=== PATIENT | male | born 1975 | race Caucasian/White ===

== ENCOUNTER 2019-01-08 21:43 | Emergency (ER) | payer OTHER, MEDICAID, SELFPAY ==
--- NOTE | 2019-01-08 21:45 | DI.RAD.S_ITS ---
PROCEDURE: XR FOOT LT MIN 3V INDICATIONS: left foot injury TECHNIQUE: 3 views of the foot were acquired. COMPARISON: [facility], CR, ANKLE 3 VIEWS LEFT, 02/21/2017, 9:14. FINDINGS: Bones: There is a comminuted fracture of the distal aspect of the distal phalanx of the great toe. No intra-articular involvement can be seen. No additional fractures are detected. Incidental note is made of an accessory ossicle, an os tibiale externum. No suspicious lytic or blastic lesions are seen. Soft tissues: Associated soft tissue swelling is seen. IMPRESSION: Comminuted fracture of the distal aspect of the distal phalanx of the great toe. Dictated by: Rajinder Lira M.D. on 01/09/2019 at 7:35 Approved by: Rajinder Lira M.D. on 01/09/2019 at 7:36
--- NOTE | 2019-01-08 21:46 | ED.EXTPRO ---
HPI - Extremity Problem General Chief complaint: Extremity Injury, Lower Stated complaint: dropped 25lb dumbbell on left foot big toe Time Seen by Provider: 01/08/19 21:45 Source: patient Mode of arrival: ambulatory Limitations: no limitations History of Present Illness HPI Narrative: 43-year-old male here for evaluation of left great toe injury. Patient states just prior to arrival he dropped a 25 lb weight on his toe. Had immediate pain and bleeding afterwards. No prior injuries to toe. Wrapped with the bandage prior to arrival. Related Data Home Medications Medication Instructions Recorded Confirmed ibuprofen [Advil] 200 mg PO PRN PRN #0 09/08/17 Previous Rx's Medication Instructions Recorded cephalexin [Keflex] 500 mg PO BID 7 Days #14 cap 01/08/19 hydrocodone-acetaminophen [[place]] 1 tab PO Q4-6H PRN #14 tab 01/08/19 Allergies Allergy/AdvReac Type Severity Reaction Status Date / Time No Known Allergies Allergy Uncoded 11/11/17 12:54 Review of Systems Constitutional Denies headache(s) ENT Ears, Nose, Mouth, and Throat: Denies headache(s) Cardiovascular Denies chest pain and Denies dyspnea Respiratory Denies dyspnea Gastrointestinal Gastrointestinal: Denies abdominal pain Musculoskeletal Comments: Left big toe pain Integumentary/Breasts Comments: Bleeding around his left big toe Neurologic Denies headache(s) Comments: No tingling to the left foot Hematologic/Lymphatic Denies easy bleeding and Denies easy bruising [facility] Medical History Healthy adult (Acute) Social History Smoking Status: Current every day smoker Social History Smoking Status: Current every day smoker Exam Initial Vital Signs Initial Vital Signs: Vital Signs Temperature 97.9 F 01/08/19 21:50 Pulse Rate 75 01/08/19 21:50 Respiratory Rate 16 01/08/19 21:50 Blood Pressure 139/79 01/08/19 21:50 Pulse Oximetry 99 01/08/19 21:50 Const General: cooperative, well developed, well groomed and No acute distress Orientation: alert, awake and oriented x3 HENMT Head: normal to inspection and normocephalic Resp Effort & Inspection: normal respiratory effort Cardio Rate: regular rate Pulses: dorsalis pedis present on the left Skin Other: Cut at the base of the nail of the left great toe. Neuro Other: Sensation intact to light touch left toe. Extrem Other: Patient with injury to the distal portion of the left great toe. Psych Appearance: grossly normal Procedures Laceration Repair Laceration 1: Site: lower extremity Side (If applicable): left Size (cm): 2 Description: linear Depth: simple, single layer Local Anesthetic: lidocaine 1% Amount of anesthesia used (mL): 5 Pre-repair: irrigated extensively Skin layer closed with: other (Chromic) Size (cm): 4-0 Number of sutures: 5 Technique: simple, interrupted Orthopedic Splinting/Casting Injury #1: Side: left Lower Extremity Injury Location: foot Lower Extremity Immobilizer: post-op shoe and lidia tape Post splinting neuro exam: no change Post splinting vascular exam: no change Placed by: Nursing Course Orders Ordered: ED Orders 01/08/19 21:45 XR foot LT min 3V Stat Discontinued Medications Hydrocodone Bitart/Acetaminophen (Vicodin Prepack) 1 bottle MISC SEEINSTR ONE Stop: 01/08/19 23:38 Last Admin: 01/08/19 23:50 Dose: 1 bottle Hydrocodone Bitart/Acetaminophen ([place] 5/325) 1 tab PO NOW ONE Stop: 01/08/19 23:38 Last Admin: 01/08/19 23:50 Dose: 1 tab Cephalexin HCl (Keflex) 500 mg PO NOW ONE Stop: 01/08/19 23:38 Last Admin: 01/08/19 23:50 Dose: 500 mg Vital Signs - 8 hr 01/08/19 21:50 01/09/19 00:10 Temperature 97.9 F Pulse Rate 75 70 Respiratory Rate 16 16 Blood Pressure 139/79 123/91 H Pulse Oximetry 99 99 MDM - Extremity (Nontraumatic) Imaging Data X-ray left foot: Attestation: I personally reviewed and interpreted this imaging study as follows: My impression: Fracture of the distal phalanx left great toe MDM Narrative Medical decision making narrative: The patient is neurovascular intact. He does have a fracture of the distal phalanx of the left great toe. The left great toenail was removed after a nerve block of the toe was administered. This revealed a laceration to the nail bed which was repaired as described above. Patient was given a dose of antibiotics here in the emergency department. Was given a prescription for antibiotics take at home as well as pain medication. 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 He was given care instructions and return precautions. He expressed understanding and agreement with plan. Discharge Plan Departure Patient Disposition: Home Clinical Impression: Fracture of toe of left foot Qualifiers: Encounter type: initial encounter Toe: great toe Fracture type: open Phalanx: distal Fracture alignment: nondisplaced Qualified Code(s): S92.425B - Nondisplaced fracture of distal phalanx of left great toe, initial encounter for open fracture Discharge Date/Time: 01/09/19 00:10 Interventions: ED Discharge Assessment Last Done: 01/09/19 00:10 Instructions: DI for Toe Fracture Activity Restrictions/Additional Instructions: You can shower like normal. Do not soak your foot in anything until the cut is healed. The stitches will come out on their own. Recommend you wear the shoe and the boot like we discussed. Take the medication as directed. Recommend you contact [phone] to talk with the health human resources services specialist here at the hospital to aid in helping you establish a primary provider. Return to the emergency department for any new or worsening symptoms Prescriptions: New hydrocodone-acetaminophen [[place]] 5-325 mg tablet 1 tab PO Q4-6H PRN (Reason: pain) Qty: 14 RF: 0 cephalexin [Keflex] 500 mg capsule 500 mg PO BID 7 Days Qty: 14 RF: 0 No Action ibuprofen [Advil] 200 MG tablet 200 mg PO PRN PRNQty: 0 RF: 0 Referrals: Benoit Lubin MD [Primary Care Provider] -
[2019-01-08 21:50] VITALS: BP 139/79; PULSE 75; RESP 16; TEMP 36.6; O2SAT 99
--- NOTE | 2019-01-08 22:16 | PC.NURSE ---
Dr. Joyce at bedside
[2019-01-08] MEDS: HYDROCODONE/ACET 5/325 PREPACK 1 BOTTLE MISC (23:50)
[2019-01-08] MEDS: HYDROCODONE/ACET 5/325 TABLET 1 TAB PO (23:50)
[2019-01-08] MEDS: cephALEXin 250 MG CAPSULE 500 MG PO (23:50)
[2019-01-09 00:10] VITALS: BP 123/91; PULSE 70; RESP 16; O2SAT 99
== END 2019-01-09 00:10 | disposition home or self-care (01) ==
PROVIDERS: Emergency Provider Emergency Medicine; PCP Family Medicine
DX: S91.212A Laceration without foreign body of left great toe with damage to nail, initial encounter (principal); S92.425B Nondisplaced fracture of distal phalanx of left great toe, initial encounter for open fracture; W20.8XXA Other cause of strike by thrown, projected or falling object, initial encounter
CPT/HCPCS: 12001; 73630; 99283

== ENCOUNTER → 2019-08-25 10:34 | Outpatient (CLI) | payer OTHER, SELFPAY ==
--- NOTE | 2019-08-25 10:43 | DI.RAD.S_ITS ---
PROCEDURE: XR LUMBAR SPINE MIN 4V INDICATIONS: lower back pain TECHNIQUE: 5 total views of the lumbar spine were acquired, including bilateral oblique views. COMPARISON: [facility], CR, XR SACRUM COCCYX MIN 2V, 08/25/2019, 10:41. [facility], CT, KIDNEY/ URETER/BLADDER, 02/13/2013, 22:13. [facility], CT, CHEST ABDOMEN PELVIS WITH CONTRAST, 08/11/2010, 2:33. FINDINGS: Bones: 5 nonrib-bearing vertebrae are present. There is normal bony alignment. No vertebral body compression fractures. No suspicious bony lesions. The disc heights are well-preserved. Soft tissues: Overlying bowel gas pattern is normal. No suspicious soft tissue calcifications. Oblique images: No pars defects. IMPRESSION: Unremarkable study, without pars defects. Dictated by: Rajinder Lira M.D. on 08/25/2019 at 10:09 Approved by: Rajinder Lira M.D. on 08/25/2019 at 10:10
--- NOTE | 2019-08-25 10:43 | DI.RAD.S_ITS ---
PROCEDURE: XR SACRUM COCCYX MIN 2V INDICATIONS: lower back pain TECHNIQUE: 3 views of the sacrum and coccyx acquired. COMPARISON: [facility], CT, CHEST ABDOMEN PELVIS WITH CONTRAST, 08/11/2010, 2:33. [facility], CT, KIDNEY/ URETER/BLADDER, 02/13/2013, 22:13. [facility], CR, XR LUMBAR SPINE MIN 4V, 08/25/2019, 10:41. FINDINGS: Bones: No fractures or dislocations. No suspicious bony lesions. There is anterior angulation of the coccyx seen between the 1st and 2nd segments of the coccyx. This is unchanged compared to 2010. Soft tissues: Visualized bowel gas pattern is normal. No suspicious soft tissue densities. IMPRESSION: Unremarkable study, considered to be stable compared to 2010. Dictated by: Rajinder Lira M.D. on 08/25/2019 at 10:07 Approved by: Rajinder Lira M.D. on 08/25/2019 at 10:09
== END ==
PROVIDERS: Visit Provider Physician Assistant
DX: M54.5 Low back pain (principal)
CPT/HCPCS: 72110; 72220

== ENCOUNTER → 2021-10-23 09:13 | Outpatient (CLI) | payer OTHER, SELFPAY ==
--- NOTE | 2021-10-23 09:17 | DI.RAD.S_ITS ---
PROCEDURE: XR HAND RT MIN 3V INDICATIONS: Thumb Injury TECHNIQUE: 3 views of the hand(s) acquired. COMPARISON: None. FINDINGS: Bones: No fractures or dislocations. Carpal bones are normally aligned. No suspicious bony lesions. Soft tissues: No suspicious soft tissue calcifications. IMPRESSION: No gross acute fracture or dislocation is seen in right hand and right thumb. Dictated by: Julian Marley M.D. on 10/23/2021 at 9:54 Approved by: Julian Marley M.D. on 10/23/2021 at 9:54
== END ==
PROVIDERS: Referring Provider Nurse Practitioner Family; Visit Provider Nurse Practitioner Family
DX: S60.011A Contusion of right thumb without damage to nail, initial encounter (principal); X58.XXXA Exposure to other specified factors, initial encounter
CPT/HCPCS: 73130

== ENCOUNTER 2022-02-14 15:55 | Emergency (ER) | payer OTHER, SELFPAY ==
[2022-02-14 16:03] VITALS: BP 141/80; PULSE 90; RESP 18; TEMP 37; O2SAT 98; BMI 22.9
--- NOTE | 2022-02-14 17:54 | DI.RAD.S_ITS ---
PROCEDURE: XR LUMBAR SPINE 2-3V INDICATIONS: Low back pain TECHNIQUE: 3 views of the lumbar spine were acquired. COMPARISON: None. FINDINGS: There are 5 [id number] lumbar type vertebral bodies. No fracture or malignment. No acute finding. IMPRESSION: No acute finding. Dictated by: Rigoberto Arreola M.D. on 02/14/2022 at 18:43 Approved by: Rigoberto Arreola M.D. on 02/14/2022 at 18:44
--- NOTE | 2022-02-14 17:55 | ED.BACK ---
HPI - Back Pain/Injury General Chief Complaint: Back Pain/Injury Stated Complaint: injured back while moving a rock Time Seen by Provider: 02/14/22 17:08 Source: patient History of Present Illness HPI Narrative: 46-year-old male, daily smoker, presents to the emergency department with low back pain secondary to moving a rock at work. 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 Patient has reported weakness to bilateral lower extremities but denies any saddle anesthesia. Pain worsens with bending movements. Patient reports a history of lumbar strain, but never this bad. This is a L& I claim. Related Data Home Medications Medication Instructions Recorded Confirmed ibuprofen 200 mg tablet (Advil) 200 mg PO PRN PRN ##0 09/08/17 10/23/21 amoxicillin 250 mg capsule 250 mg PO BID 10/23/21 10/23/21 Previous Rx's Medication Instructions Recorded hydrocodone 5 mg-acetaminophen 325 1 tab PO Q6H PRN pain #10 tabs 02/14/22 mg tablet methocarbamol 750 mg tablet 750 mg PO TID PRN back spasms #20 02/14/22 tabs Allergies Allergy/AdvReac Type Severity Reaction Status Date / Time No Known Drug Allergies Allergy Verified 02/14/22 16:05 Review of Systems Review of Systems Narrative: Narrative: GENERAL: Denies chills, fatigue, fever, sweats. See HPI HEENT: Denies sinus pain, ear pain, sore throat, difficulty swallowing, dizziness. RESPIRATORY: Denies dyspnea, cough, wheezing, sputum. CARDIOVASCULAR: Denies chest pain, palpitations, edema. GASTROINTESTINAL: Denies nausea, vomiting, abdominal pain, diarrhea, constipation. : Denies dysuria, frequency, incontinence, hematuria, urinary retention, flank pain. MSK: Denies joint pain, or bony pain. SKIN: Denies rash, skin lesions, or pruritis. NEUROLOGIC: Denies dizziness, headache, numbness, confusion. PSYCHIATRIC: No concerning psychosocial issues. Patient History Medical History (Updated 02/14/22 @ 19:18 by ASHLEY Orantes) Healthy adult Social History Smoking Status: Current every day smoker Smoking Status: Current every day smoker alcohol intake frequency: a few times a month Substance Use Type: marijuana Exam Narrative Exam Narrative: Exam Narrative: GENERAL: This is a well-nourished, well-developed patient, in visible discomfort. HEAD: Atraumatic. Normocephalic. EYES: Pupils equal round and reactive. Extraocular motions intact. No scleral icterus, injection or drainage. ENT: Nose without bleeding, purulent drainage. Throat without erythema, tonsillar hypertrophy or exudate. Airway patent. NECK: Trachea midline. No JVD or lymphadenopathy. Nontender. CARDIOVASCULAR: Regular rate and rhythm without murmurs, peripheral pulses intact, cap refill <2 sec. RESPIRATORY: Breath sounds equal and clear bilaterally. No wheezes, rales, or rhonchi. No cough. No increased respiratory effort. No accessory muscle use. GASTROINTESTINAL: Abdomen soft, non-tender, nondistended without guarding or rebound. No suprapubic pain. MSK: Moves all extremities. Limited range of motion due to pain. Neurovascularly intact. NEURO: A&O x 3. SKIN: Warm, dry, no rashes or lesions noted. 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 There is no asymmetry, swelling, bruising or wound. There is paraspinal tenderness at L5 and denies any CVA tenderness. SI joints nontender. No symptoms of cauda equina such as saddle anesthesia. Sensation is grossly intact. ROM is limited due to pain. SLE is positive bilaterally. Reflexes 2-3 at patella and achilles bilaterally. Resistive strengths are within normal limits Gait is ataxic. Heel toe balance is intact. Course Orders Ordered: ED Orders 02/14/22 17:54 XR lumbar spine 2-3V Stat Discontinued Medications Ketorolac Tromethamine (Ketorolac 30 Mg/Ml Vial) 30 mg IM NOW ONE Stop: 02/14/22 18:10 Last Admin: 02/14/22 18:24 Dose: 30 mg Documented By: EM Oxycodone/Acetaminophen (Oxycodone/Acetaminophen 5/325 Tablet) 1 tab PO NOW ONE Stop: 02/14/22 18:03 Last Admin: 02/14/22 18:09 Dose: Not Given Documented By: CTS Vital Signs Vital signs: Vital Signs - 8 hr 02/14/22 16:03 Temperature 98.6 F Pulse Rate 90 Respiratory Rate 18 Blood Pressure 141/80 H Pulse Oximetry 98 Oxygen Delivery Method Room Air MDM - Back Pain/Injury Differential Diagnosis Differential diagnosis: Likely strain of lumbar region Imaging Data Extremity x-ray #1: Radiologist's Impression: [address] [address] XRay Report Signed Patient: Rigoberto Abreu MR#: [id number] : 1975 Acct:[id number] Age/Sex: 46 / M Date of Service: 02/14/22 Loc: ED Accession Number: [id number] ?? Procedure: XR lumbar spine 2-3V Ordering Provider: Anton Felix PROCEDURE:? XR LUMBAR SPINE 2-3V ? INDICATIONS:? Low back pain ? TECHNIQUE:? 3 views of the lumbar spine were acquired.? ? COMPARISON:? None. ? FINDINGS:? ? There are 5 [id number] lumbar type vertebral bodies. No fracture or malignment. No acute finding. ? IMPRESSION:? No acute finding. ? ? Dictated by: Rigoberto Arreola M.D. on 02/14/2022 at 18:43 ? ? Approved by: Rigoberto Arreola M.D. on 02/14/2022 at 18:44? [facility] Narrative Medical decision making narrative: 46-year-old male presents to the emergency department with lower back pain while lifting a rock at work earlier today. Due to previous drug use, patient declined Percocet for pain control and opted for a Toradol injection. X-ray reveals a normal lumbar spine. Consideration included that injury was traumatic, patient is not a IV drug user, no fever, neurovascular intact, no weakness, no signs of epidural abscess or saddle anesthesia. Patient was discharged home with muscle relaxers short course of opioids, due to his pain. L and I paperwork completed. Discussed plan of care and return precautions with the patient, who was agreeable with course of action. Discharge Plan Departure Patient Disposition: Home Clinical Impression: Lumbar back pain Instructions: DI for Low Back Pain, DI for Back Strain or Sprain Activity Restrictions/Additional Instructions: *You have been diagnosed with lumbar strain. I recommend that you rest her back as much as possible, but do engage in daily range of motion stretching exercises so you do not get too stiff. I am prescribing a muscle relaxer and pain medication. Please provide your L&I paperwork to your employer. If at any point you develop loss of control of your bowel or bladder, or experiencing intolerable pain, please return to the emergency department immediately. Otherwise, please follow-up with your family doctor as needed. *What to do: *Please continue to take your regular medications as directed. [x ] New medication prescriptions sent to your pharmacy: [[facility] in [place]] [ ] New medication written as a paper prescription [ ] No new medications given *Please follow up with your primary care provider in 2-3 days, call for an appointment. Let them know you were seen in the Emergency Department and that we ask that you be seen in follow up. We will electronically transmit a record of today's note if your PCP is in our system *If you do not have a primary care provider please contact the [facility] Resource line at [phone]. They will ask some questions about your medical history and help get you set up with a doctor in the community. ? Return to ER if you should have any new, worsening or concerning symptoms, such as worsening pain, severe headache, confusion, chest pain, difficulty breathing, fever greater than 101 F, shaking chills, persistent vomiting to the point that you cannot drink fluids, or other new or worsening symptoms. Prescriptions: New methocarbamol 750 mg tablet 750 mg PO TID PRN (Reason: back spasms) Qty: 20 0RF hydrocodone-acetaminophen 5-325 mg tablet 1 tab PO Q6H PRN (Reason: pain) Qty: 10 0RF No Action amoxicillin 250 mg capsule 250 mg PO BID ibuprofen [Advil] 200 MG tablet 200 mg PO PRN PRNQty: 0 Stand Alone Forms: Work Release Note Visit Report Forms: Patient Portal/API
[2022-02-14] MEDS: KETOROLAC 30 MG/ML VIAL IM (18:24)
== END 2022-02-14 19:32 | disposition home or self-care (01) ==
PROVIDERS: Emergency Provider Registered Nurse
DX: M54.50 Low back pain, unspecified (principal); X50.0XXA Overexertion from strenuous movement or load, initial encounter; Y99.0 Civilian activity done for income or pay
CPT/HCPCS: 72100; 96372; 99283; J1885

== ENCOUNTER 2022-02-18 09:43 | Emergency (ER) | payer OTHER, SELFPAY ==
[2022-02-18 09:48] VITALS: BP 129/66; PULSE 89; RESP 18; TEMP 36.7; O2SAT 96; BMI 22.3
--- NOTE | 2022-02-18 11:03 | ED_ITS ---
HPI - Back Pain/Injury General Chief Complaint: Back Pain/Injury Stated Complaint: back pain Time Seen by Provider: 02/18/22 10:31 Source: patient History of Present Illness HPI Narrative: 46-year-old man with chronic back pain come to the ER today with 2 days of severe back pain after doing heavy lift at work. He was seen in the emergency department yesterday with minimal improvement with the medications prescribed. He has radiation of tingling and numbness in the back of his thighs. He denies incontinence, fever and lower extremity weakness. Related Data Home Medications Medication Instructions Recorded Confirmed ibuprofen 200 mg tablet (Advil) 200 mg PO PRN PRN ##0 09/08/17 10/23/21 amoxicillin 250 mg capsule 250 mg PO BID 10/23/21 10/23/21 Previous Rx's Medication Instructions Recorded hydrocodone 5 mg-acetaminophen 325 1 tab PO Q6H PRN pain #10 tabs 02/14/22 mg tablet methocarbamol 750 mg tablet 750 mg PO TID PRN back spasms #20 02/14/22 tabs dexamethasone 4 mg tablet 4 mg PO DAILY #5 tabs 02/18/22 morphine 30 mg immediate release 30 mg PO Q6H #12 tabs 02/18/22 tablet Allergies Allergy/AdvReac Type Severity Reaction Status Date / Time No Known Drug Allergies Allergy Verified 02/18/22 10:11 Review of Systems Review of Systems Narrative: Complete review of systems is negative other than as noted above. Patient History Medical History (Updated 02/18/22 @ 11:03 by Ray Lin MD) Healthy adult Social History Smoking Status: Current every day smoker Smoking Status: Current every day smoker alcohol intake frequency: a few times a month Substance Use Type: marijuana Exam Narrative Exam Narrative: GENERAL: Alert, cooperative and in no distress. HEAD: Atraumatic. Normocephalic. EYES: Sclera are clear without icterus. Extraocular movements are full. ENT: No rhinorrhea. Oropharynx is moist. Mouth exam is benign. NECK: Supple. Full range of motion. CARDIOVASCULAR: Normal rate and rhythm without murmur gallop or rub. RESPIRATORY: Clear to auscultation. Breath sounds equal bilaterally. No wheezes, rales, or rhonchi. GASTROINTESTINAL: Abdomen soft, non-tender, nondistended. EXTREMITIES: No edema, full range of motion. No obvious trauma. BACK: Normal inspection, no CVA tenderness. NEURO: Nonfocal examination, normal speech, normal dorsiflexion and plantar flexion at the ankles. Straight leg testing is positive at 20? bilaterally. SKIN: No rash or erythema of visible areas PSYCH: Normally oriented. Normal range of affect. Appropriate behavior Initial Vital Signs Initial Vital Signs: Vital Signs Temperature 98.0 F 02/18/22 09:48 Pulse Rate 89 02/18/22 09:48 Respiratory Rate 18 02/18/22 09:48 Blood Pressure 129/66 02/18/22 09:48 Pulse Oximetry 96 02/18/22 09:48 Oxygen Delivery Method 02/18/22 09:48 Course Vital Signs Vital signs: Vital Signs - 8 hr 02/18/22 09:48 Temperature 98.0 F Pulse Rate 89 Respiratory Rate 18 Blood Pressure 129/66 Pulse Oximetry 96 Oxygen Delivery Method Room Air MDM - Back Pain/Injury MDM Narrative Medical decision making narrative: I do not suspect an acute nerve impingement or cauda equina syndrome or epidural abscess. I think musculoskeletal pain with radiculopathy is the diagnosis here. I recommend conservative management with close outpatient follow-up. Careful return precautions given. Discharge Plan Departure Patient Disposition: Home Clinical Impression: Lumbar back pain, Sciatica Instructions: DI for Back Pain With Sciatica Activity Restrictions/Additional Instructions: Thank you for interesting us with your care today. I am sorry that you back is hurting you so much. I wish we can just fix it make it better. Unfortunately these things take some time and fortunately you do not have signs that are emergent at this time. You should return to the emergency department immediately for incontinence or lower extremity weakness or fever associated with her back pain. For pain management I recommend the large dose of Tylenol that you have been taking twice daily. Discontinue ibuprofen. Instead take dexamethasone 4 mg daily for 5 days. This is a very potent anti inflammatory medication that should help quite a bit over the next few days. I do not recommend methoc arbamol unless you find a distinctly useful. I will prescribe morphine tablets for you to take 1 or 2 every 4 hours as needed for severe pain understanding that this medication is very sedating and can be dangerous and habit-forming. Be proactive about constipation as this almost always occurs with morphine. Follow-up with a primary care doctor at the [facility] for internal medicine or family medicine. At some point you may need to see a spine surgeon such as Dr. Munoz in [place]. The primary care #[phone]. Make sure that you tell them that this is an ER follow-up. Prescriptions: New morphine 30 mg tablet 30 mg PO Q6H Qty: 12 0RF dexamethasone 4 mg tablet 4 mg PO DAILY Qty: 5 0RF No Action amoxicillin 250 mg capsule 250 mg PO BID ibuprofen [Advil] 200 MG tablet 200 mg PO PRN PRNQty: 0 methocarbamol 750 mg tablet 750 mg PO TID PRN (Reason: back spasms) Qty: 20 0RF hydrocodone-acetaminophen 5-325 mg tablet 1 tab PO Q6H PRN (Reason: pain) Qty: 10 0RF Stand Alone Forms: Work Release Note
== END 2022-02-18 11:17 | disposition home or self-care (01) ==
PROVIDERS: Emergency Provider Family Medicine Addiction Medicine
DX: M54.40 Lumbago with sciatica, unspecified side (principal); X50.0XXA Overexertion from strenuous movement or load, initial encounter; Y99.0 Civilian activity done for income or pay
CPT/HCPCS: 99281

== ENCOUNTER 2024-02-02 08:24 | Emergency (ER) | payer OTHER, SELFPAY ==
[2024-02-02 08:35] VITALS: BP 133/89; PULSE 70; RESP 16; TEMP 36.1; O2SAT 100; BMI 20.9
--- NOTE | 2024-02-02 09:47 | PC.NURSE ---
Work injury from 3 days ago. Pt states his headache has gotten worse. Pt states he has been dizzy and some nausea. Pt was able to drive himself here. No vision changes.
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
--- NOTE | 2024-02-02 10:33 | DI.CT.S_ITS ---
PROCEDURE: CT HEAD/BRAIN WO CON INDICATIONS: head pain, trauma 5 days ago, R temporal area TECHNIQUE: Noncontrast 4.5 mm thick angled axial sections acquired from the foramen magnum to the vertex, with coronal and sagittal reformats. For radiation dose reduction, the following was used: automated exposure control, adjustment of mA and/or kV according to patient size. COMPARISON: None. FINDINGS: Image quality: Diagnostic. CSF spaces: Basal cisterns are patent. No extra-axial fluid collections. Ventricles are normal in size and shape. Brain: No midline shift. No intracranial masses or hemorrhage. Farr-white matter interface is normal. Skull and face: Calvarium and visualized facial bones are intact, without suspicious lesions. Sinuses: Visualized sinuses and mastoids are clear. IMPRESSION: No acute intracranial pathology. Dictated by: Cuauhtemoc Bustillo M.D. on 02/02/2024 at 10:47 Approved by: Cuauhtemoc Bustillo M.D. on 02/02/2024 at 10:49
[2024-02-02] MEDS: ONDANSETRON 4 MG ODT SL (10:49)
[2024-02-02 11:50] VITALS: PULSE 63; RESP 16
[2024-02-02 12:32] VITALS: BP 114/71; PULSE 72; RESP 16; O2SAT 99
== END 2024-02-02 12:33 | disposition home or self-care (01) ==
PROVIDERS: Emergency Provider Emergency Medicine
DX: S06.0X0A Concussion without loss of consciousness, initial encounter (principal); W22.8XXA Striking against or struck by other objects, initial encounter
CPT/HCPCS: 70450; 99283; 99284

== ENCOUNTER 2025-05-11 17:43 | Emergency (ER) | payer OTHER, SELFPAY ==
[2025-05-11 18:00] VITALS: BP 112/56; PULSE 57; RESP 30; TEMP 36.9; O2SAT 94
[2025-05-11 18:06] LABS: Add Manual Diff / Slide Review NO; Hematocrit 47.8 % (41-53); Hemoglobin 16.3 g/dL (13.5-17.5); Lymphocytes Absolute Auto 900 /uL (1100-4500); Mean Corpuscular HGB Conc 34.1 % (30-36); Mean Corpuscular Hemoglobin 31.1 PG (26-34); Mean Corpuscular Volume 91.3 fL (80-100); Platelet Count 289 X10^3/uL (150-400)
--- NOTE | 2025-05-11 18:07 | PC.NURSE ---
pt not responding verbally to this nurse. IV fluids were attempted to be placed and the patient became agitated and tried to cover himself up with blankets.
--- NOTE | 2025-05-11 19:05 | PC.NURSE ---
Rn to exam room. Pt's family at bedside. Pt stirs, sits up, and asks where he is. Explained to patient current situation. Pt able to state who family members at bedside are but quickly becomes agitated, lays back down and covers himself with blankets. Family refuses vital signs or other interventions at this time. Family states he will become more cooperative as he wakes up.
--- NOTE | 2025-05-11 19:56 | ED.SEIZURE ---
HPI - Seizure General Chief Complaint: Seizure Stated Complaint: Unwitnessed Seziure Time Seen by Provider: 05/11/25 17:52 Mode of arrival: EMS History of Present Illness HPI Narrative: 49-year-old male with history of prior single seizure 6 months ago, not on antiseizure medications, awaiting Neurology consultation on 06/05/25, brought in by ambulance agitated, found in the bathtub by family, attempted to get out of the bathtub, history of seizures, unclear if you had any witnessed seizure, no historians at bedside on my evaluation. Not able to follow command, not cooperative with commands. Would not answer questions regarding any areas that he has pain. Unclear if he has antiseizure medications. Await family historian for further information. Related Data Previous Rx's ?Medication ?Instructions ?Recorded levetiracetam 500 mg tablet 500 mg PO BID #60 tabs 05/11/25 (Keppra) Allergies Allergy/AdvReac Type Severity Reaction Status Date / Time No Known Drug Allergies Allergy Verified 05/11/25 18:07 Exam Narrative Exam Narrative: GENERAL: Uncooperative, we would not give history HEAD: Atraumatic. Normocephalic. EYES: Pupils equal round and reactive. Extraocular motions intact. No scleral icterus. No injection or drainage. ENT: No obvious craniofacial acute trauma. NECK: Trachea midline. Moves neck well. CARDIOVASCULAR: Regular rate and rhythm without murmurs, gallops, or rubs. RESPIRATORY: Clear to auscultation. Breath sounds equal bilaterally. No wheezes, rales, or rhonchi. Posterior thoracic abrasion small right lower. No air emphysema subcutaneous, no crepitance. GASTROINTESTINAL: Abdomen soft, non-tender, nondistended. EXTREMITIES: No edema or joint tenderness. BACK: Nontender without deformity or crepitance. No flank tenderness. NEURO: AOx3. Motor functions grossly nonfocal. SKIN: No rash or erythema of visible areas Initial Vital Signs Initial Vital Signs: Vital Signs Temperature 98.4 F 05/11/25 18:00 Pulse Rate 57 L 05/11/25 18:00 Respiratory Rate 30 H 05/11/25 18:00 Blood Pressure 112/56 L 05/11/25 18:00 Pulse Oximetry 94 05/11/25 18:00 Oxygen Delivery Method Room Air 05/11/25 18:00 Course Orders Ordered: ED Orders 05/11/25 21:25 Acetaminophen Stat CMP [Comprehensive Metabolic Panel] Stat ETOH [Ethanol (ETOH)] Stat Salicylate Stat Discontinued Medications Diazepam (Diazepam 10 Mg/2 Ml Syringe) 5 mg IV NOW ONE Stop: 05/11/25 17:53 Last Admin: 05/11/25 19:08 Dose: Not Given Documented By: DELILAH Sodium Chloride (Normal Saline 0.9%) 1,000 mls @ 1,000 mls/hr IV BOLUS ONE Stop: 05/11/25 18:51 Levetiracetam 1,000 mg/ Sodium (Chloride) 110 mls @ 440 mls/hr IV NOW ONE Stop: 05/11/25 21:54 Last Infusion: 05/11/25 22:42 Dose: Infused Documented By: Admin: 05/11/25 22:22 Dose: 440 mls/hr Documented By: LS Vital Signs Vital signs: Vital Signs - 8 hr 05/11/25 18:00 Temperature 98.4 F Pulse Rate 57 L Respiratory Rate 30 H Blood Pressure 112/56 L Pulse Oximetry 94 Oxygen Delivery Method Room Air MDM - Seizure Lab Data Attestation: I reviewed the patient's lab results. Lab results narrative: White blood cell count 95648, hemoglobin 16.3, platelets adequate. Glucose 110. BUN 21 with a creatinine 1.04. Serum CO2 and electrolytes negative. Liver functions normal. Ethanol, acetaminophen, salicylate levels negative. 05/11/25 17:50 05/11/25 21:25 Labs: Lab Results 05/11/25 05/11/25 Range/Units 17:50 21:25 WBC 21.5 H (4.5-11.0) X10^3/uL RBC 5.23 (4.5-5.9) X10^6/uL Hgb 16.3 (13.5-17.5) g/dL Hct 47.8 (41-53) % MCV 91.3 (80-100) fL MCH 31.1 (26-34) PG MCHC 34.1 (30-36) % RDW 13.2 (11.6-14.8) % Plt Count 289 (150-400) X10^3/uL Neut % (Auto) 89.2 H (50-75) % Lymph % (Auto) 4.4 L (25-40) % [place] % (Auto) 6.1 (3-14) % Eos % (Auto) 0.0 L (2-4) % Baso % (Auto) 0.3 (0-2) % Neut # (Auto) 08208 H (7689-0509) /uL Lymph # (Auto) 900 L (6238-8058) /uL [place] # (Auto) 1300 H (0-900) /uL Eos # (Auto) 0 (0-450) /uL Baso # (Auto) 100 (0-100) /uL Sodium 142 (137-145) mmol/L Potassium 3.7 (3.4-5.1) mmol/L Chloride 108 H (98-107) mmol/L Carbon Dioxide 22 (22-32) mmol/L BUN 21 H (9-20) mg/dL Creatinine 1.04 (0.66-1.25) mg/dL Estimated GFR > 60 (>60) mL/min BUN/Creatinine Ratio 20.2 (6-22) Glucose 110 H (70-99) mg/dL Calcium 10.1 (8.4-10.2) mg/dL Total Bilirubin 0.7 (0.2-1.3) mg/dL AST 38 (17-59) IU/L ALT 25 (<50) IU/L Alkaline Phosphatase 84 (38-126) U/L Total Protein 8.2 (6.3-8.2) g/dL Albumin 5.0 (3.5-5.0) g/dL Globulin 3.2 (1.7-4.1) g/dL Albumin/Globulin Ratio 1.6 (1.0-2.8) Salicylates < 1.0 (<20) mg/dL Acetaminophen < 10 (10-30) ug/mL Ethyl Alcohol < 10 (<10) mg/dL Imaging Data Chest x-ray: Radiologist's Impression: [address] [address] XRay Report Signed Patient: Rigoberto Abreu MR#: [id number] : 1975 Acct:[id number] Age/Sex: 49 / M Date of Service: 05/11/25 Loc: ED Accession Number: [id number] Procedure: XR chest 1V Ordering Provider: Albino Hung MD PROCEDURE: XR CHEST 1V INDICATIONS: rash ?bruises posterior chest TECHNIQUE: One view of the chest was acquired. COMPARISON: [facility], CR, XR CHEST 1V, 01/23/2025, 11:32. [facility], CR, CHEST 2 VIEW, 09/08/2017, 10:41. FINDINGS: Surgical changes and devices: None. Lungs and pleura: Lungs are clear. No pleural effusions or pneumothorax. Mediastinum: Mediastinal contours appear normal. Heart size is normal. Bones and chest wall: No suspicious bony lesions. Overlying soft tissues appear unremarkable. IMPRESSION: No acute cardiopulmonary abnormality is seen. Dictated by: Klever Parker M.D. on 05/11/2025 at 20:54 Approved by: Klever Parker M.D. on 05/11/2025 at 20:55 CT scan - head: Radiologist's Impression: [place] [address] CT Scan Report Signed Patient: Rigoberto Abreu MR#: [id number] : 1975 Acct:[id number] Age/Sex: 49 / M Date of Service: 05/11/25 Loc: ED Accession Number: [id number] Procedure: CT head/brain wo con Ordering Provider: Albino Hung MD PROCEDURE: CT HEAD/BRAIN WO CON INDICATIONS: ?trauma, possible sz TECHNIQUE: Noncontrast 4.5 mm thick angled axial sections acquired from the foramen magnum to the vertex, with coronal and sagittal reformats. For radiation dose reduction, the following was used: automated exposure control, adjustment of mA and/or kV according to patient size. COMPARISON: [facility], CT, CT HEAD/BRAIN WO CON, 01/23/2025, 11:44. FINDINGS: Image quality: Diagnostic. CSF spaces: Basal cisterns are patent. No extra-axial fluid collections. Ventricles are normal in size and shape. Brain: No midline shift. No intracranial mass effect or hemorrhage. Farr-white matter interface is normal. Skull and face: Calvarium and visualized facial bones are intact, without suspicious lesions. Sinuses: Visualized sinuses and mastoids are clear. IMPRESSION: No acute intracranial pathology. Dictated by: Klever Parker M.D. on 05/11/2025 at 20:55 Approved by: Klever Parker M.D. on 05/11/2025 at 20:55 MDM Narrative Medical decision making narrative: 49-year-old male with history of one prior seizure, no anti seizure medications, had reported witnessed shaking episode in front of girlfriend who was not here to give 1st hand history, not available by phone. He had abrasions to his posterior back, found in the bathroom tub. Patient was agitated, EMS gave IM Versed both for agitation and to help control seizures, no witnessed seizure by EMS. IV Keppra load. CT head ordered. Chest x-ray no acute changes, see radiology report. Lab data: White blood cell count 43184, hemoglobin 16.3, platelets adequate. Glucose 110. BUN 21 with a creatinine 1.04. Serum CO2 and electrolytes negative. Liver functions normal. Ethanol, acetaminophen, salicylate levels negative. CT head noncontrast, no acute changes, see radiology report. Slept overnight, history from brother who was at bedside. 0530, more cooperative, was ambulatory, brother feels comfortable taking him home. Second seizure, negative head CT scan, awaiting neurology consultation next month. We will start Keppra 500 mg twice daily, given 1 month supply, given that this is his 2nd reported seizure. Follow up with Neurology advised. Discharged home with family. Return precautions discussed. Discharge Plan Departure Patient Disposition: Home Clinical Impression: Seizure Activity Restrictions/Additional Instructions: History of prior seizure months ago, awaiting neurology follow up appointment scheduled next month, suspected seizure activity tonight witnessed by girlfriend who was not present to personally really history. Agitation, transport by EMS, intramuscular Versed/midazolam given to help with transfer agitation control of symptoms, which can also help with treatment of seizures. CT head no acute changes. Possibly 2nd seizure by history, we will start antiseizure medication, IV Keppra loading dose given. Prescription for Keppra 500 mg by mouth twice daily typical starting regimen dose prescription, sent to pharmacy. Take antiseizure medications as directed. Follow up with your neurologist as planned for consultation. Return to this/nearest emergency department for any change worsening symptoms or any concerns prior. Prescriptions: New levetiracetam [Keppra] 500 mg tablet 500 mg PO BID Qty: 60 0RF Referrals: Luann Vaz MD [Primary Care Provider, Emergency Medicine] Stand Alone Forms: Patient Portal/API
--- NOTE | 2025-05-11 20:00 | DI.RAD.S_ITS ---
PROCEDURE: XR CHEST 1V INDICATIONS: rash ?bruises posterior chest TECHNIQUE: One view of the chest was acquired. COMPARISON: [facility], [place], XR CHEST 1V, 01/23/2025, 11:32. [facility], [place], CHEST 2 VIEW, 09/08/2017, 10:41. FINDINGS: Surgical changes and devices: None. Lungs and pleura: Lungs are clear. No pleural effusions or pneumothorax. Mediastinum: Mediastinal contours appear normal. Heart size is normal. Bones and chest wall: No suspicious bony lesions. Overlying soft tissues appear unremarkable. IMPRESSION: No acute cardiopulmonary abnormality is seen. Dictated by: Klever Parker M.D. on 05/11/2025 at 20:54 Approved by: Klever Parker M.D. on 05/11/2025 at 20:55
--- NOTE | 2025-05-11 20:00 | PC.NURSE ---
Family remains at bedside. Pt continues to be restless lying in ED stretcher, will occasionally respond to questioning and continues to be confused at current situation. Does not comply with vs at this time and wraps himself in blankets.
--- NOTE | 2025-05-11 20:02 | DI.CT.S_ITS ---
PROCEDURE: CT HEAD/BRAIN WO CON INDICATIONS: ?trauma, possible sz TECHNIQUE: Noncontrast 4.5 mm thick angled axial sections acquired from the foramen magnum to the vertex, with coronal and sagittal reformats. For radiation dose reduction, the following was used: automated exposure control, adjustment of mA and/or kV according to patient size. COMPARISON: [facility], CT, CT HEAD/BRAIN WO CON, 01/23/2025, 11:44. FINDINGS: Image quality: Diagnostic. CSF spaces: Basal cisterns are patent. No extra-axial fluid collections. Ventricles are normal in size and shape. Brain: No midline shift. No intracranial mass effect or hemorrhage. Farr- white matter interface is normal. Skull and face: Calvarium and visualized facial bones are intact, without suspicious lesions. Sinuses: Visualized sinuses and mastoids are clear. IMPRESSION: No acute intracranial pathology. Dictated by: Klever Parker M.D. on 05/11/2025 at 20:55 Approved by: Klever Parker M.D. on 05/11/2025 at 20:55
--- NOTE | 2025-05-11 20:12 | PC.NURSE ---
Addendum entered by Cahty Hernandez RN 05/12/25 00:48: Brothers to imaging with patient Original Note: Pt to imaging via ED stretcher with chemical waste management technician
--- NOTE | 2025-05-11 21:00 | PC.NURSE ---
No change in patient condition or status at this time. Pt remains restless, wrapping self in multiple blankets and complaining of being cold and requesting water. Pt not compliant with vs at this time. No distress noted at this time. Family remains at bedside.
--- NOTE | 2025-05-11 21:30 | PC.NURSE ---
Pt compliant with lab draw from existing IV at this time but remains restless and has to be reminded frequently to keep hand still. Provided ice water at this time per pt request. Pt remains not compliant with vs at this time. Family remains at bedside.
--- NOTE | 2025-05-11 22:00 | PC.NURSE ---
RN in to exam room to administered medication. No change in patient condition or status. Family states that patient vomited up some of the water and agreed not to provide any more at this time. Pt remains confused on current situation and becomes agitated when being spoken to. Pt allows IV med administration but has to be reminded frequently during to keep arm still. Pt continues to wrap in blankets. Family remains at bedside.
--- NOTE | 2025-05-11 22:07 | CM.MNRNOTE ---
Per family pt out of bed and requesting water. Family states they were able to get him back into bed without incident. Pt wrapped in blankets upon RN to exam room not speaking at this time.
[2025-05-11 22:09] LABS: Acetaminophen < 10 ug/mL (10-30); Alanine Aminotransferase 25 IU/L (<50); Albumin 5.0 g/dL (3.5-5.0); Albumin Globulin Ratio 1.6 (1.0-2.8); Alkaline Phosphatase 84 U/L (38-126); Blood Urea Nitrogen 21 mg/dL (9-20); Calcium 10.1 mg/dL (8.4-10.2); Carbon Dioxide 22 mmol/L (22-32); Chloride 108 mmol/L (98-107); Estimated Glomerular Filt Rate > 60 mL/min (>60); Ethanol (ETOH) < 10 mg/dL (<10); Globulin 3.2 g/dL (1.7-4.1); Glucose 110 mg/dL (70-99); HEMOLYSIS < 15 (0-50); Potassium 3.7 mmol/L (3.4-5.1); Salicylate < 1.0 mg/dL (<20); Sodium 142 mmol/L (137-145); Total Protein 8.2 g/dL (6.3-8.2)
--- NOTE | 2025-05-11 22:30 | PC.NURSE ---
No change in patient condition or status. Pt continues to refuse vs. No distress noted at this time. Family remains at bedside.
--- NOTE | 2025-05-11 23:00 | PC.NURSE ---
No change in patient condition or status. Pt remains restless in stretcher and continues to wrap self in blankets including over his head. Continues to refuse vs. No distress noted at this time. Family remains at bedside.
--- NOTE | 2025-05-11 23:45 | PC.NURSE ---
Per family pt out of bed requesting water. Pt placed back in stretcher by brother without incident. Pt wrapped in blankets upon RN to exam room. Pt requests water at this time. No distress noted. Pt wrapped back in blankets when RN returns to exam room with water. Water given to brother.
--- NOTE | 2025-05-12 | PC.NURSE ---
No change in patient condition or status. Pt resting quietly with eyes closed, resps even and not labored. No distress noted at this time. Brother remains at bedside. Brother agrees that pt is still too confused and not steady enough for a safe discharge home at this time.
--- NOTE | 2025-05-12 01:00 | PC.NURSE ---
No change in patient condition or status. Pt continues to rest quietly with eyes closed, resps even and not labored. No distress noted at this time. Brother remains at bedside.
--- NOTE | 2025-05-12 01:07 | PC.NURSE ---
Discharge printed by Dr. Hung. Brother and RN agree that it is not a safe discharge at this time with pt continuing to be confused and unsteady on his feet. Pt seems to be less restless at this time and is resting quietly with eyes closed. Will reevaluate for safe discharge at a later time. Dr. Hung aware and in agreement.
--- NOTE | 2025-05-12 01:44 | PC.NURSE ---
Brother out to nurses station asking for warm blankets and more water. RN to exam room with water and blankets. Pt answering some questions. When asked if he was ready to go home pt states I don't know. I don't even know how I got here. Reoriented pt to current situation. Pt wraps self back in blankets and stops speaking. Brother states not yet ready for discharge.
--- NOTE | 2025-05-12 03:45 | PC.NURSE ---
No change in patient condition or status. Pt resting quietly with eyes closed, resps even and not labored. No distress noted at this time. Brother remains at bedside.
--- NOTE | 2025-05-12 04:24 | PC.NURSE ---
Brother to nurses station asking for water for patient. RN in to speak with patient. Asked pt Karishma Riverason, are you waking up? Pt responds Some. RN asks Do you think you're ready to get out of here and go home? Pt responds No! When asked why he states I'm still confused! and continues with I'm really thirsty and I need a lot of water. Like 3 of these cups full. RN speaking with brother outside of room that we will work on getting him up and moving soon since it has been almost 12 hours and he is responding appropriately to questions. Brother agrees.
--- NOTE | 2025-05-12 06:00 | PC.NURSE ---
Pt rouses easily to verbal stimuli states I'm not ready to go, I don't feel right. Brother and RN encourage pt to wake up and sit up to start moving around. Pt does as requested and asks for more water. RN retrieves water and removes seizure pads from bed railings. Pt has to be encouraged to stay in stretcher until socks are placed. Pt states he has to use the bathroom and quickly gets out of bed, then states he feels dizzy. RN to pt side but pt refuses to sit stating I need to go to the bathroom! where is the bathroom? RN assists pt to restroom. Pt states upon leaving bathroom that he feels dizzy and sits in chair outside of bathroom. More water is retrieved at pts request. Pt and brother are having appropriate conversation at this time.
[2025-05-12 06:19] VITALS: BP 108/69; PULSE 74; RESP 20; O2SAT 97
== END 2025-05-12 06:22 | disposition home or self-care (01) ==
PROVIDERS: Emergency Medicine; Emergency Provider Emergency Medicine; PCP Emergency Medicine
DX: G40.909 Epilepsy, unspecified, not intractable, without status epilepticus (principal)
CPT/HCPCS: 36415; 70450; 71045; 80053; 80320; 80329; 85025; 96365; 99284; G0480; J1953; J3360; J7030; J7050

== ENCOUNTER 2025-06-12 11:36 | Observation (INO) | payer OTHER, SELFPAY ==
[2025-06-12] VITALS (17 sets, daily range): BP systolic 97–123; BP diastolic 55–74; PULSE 44–88; RESP 16–23; TEMP 36.8–36.9; O2SAT 91–99
--- NOTE | 2025-06-12 11:58 | DI.CT.S_ITS ---
PROCEDURE: CT HEAD/BRAIN WO CON INDICATIONS: Seizure twice TECHNIQUE: Noncontrast 4.5 mm thick angled axial sections acquired from the foramen magnum to the vertex, with coronal and sagittal reformats. For radiation dose reduction, the following was used: automated exposure control, adjustment of mA and/or kV according to patient size. COMPARISON: [facility], CT, CT HEAD/BRAIN WO CON, 05/11/2025, 20:20. FINDINGS: Image quality: Diagnostic. CSF spaces: Basal cisterns are patent. No extra-axial fluid collections. Ventricles are normal in size and shape. Brain: No midline shift. No intracranial mass effect or hemorrhage. Farr- white matter interface is normal. Skull and face: Calvarium and visualized facial bones are intact, without suspicious lesions. Sinuses: Visualized sinuses and mastoids are clear. IMPRESSION: No acute intracranial pathology. Dictated by: Oscar Molina M.D. on 06/12/2025 at 13:23 Approved by: Oscar Molina M.D. on 06/12/2025 at 13:24
--- NOTE | 2025-06-12 12:00 | DI.RAD.S_ITS ---
PROCEDURE: XR CHEST 1V INDICATIONS: Seizure TECHNIQUE: One view of the chest was acquired. COMPARISON: [facility], CR, XR CHEST 1V, 05/11/2025, 20:02. FINDINGS: Surgical changes and devices: None. Lungs and pleura: Lungs are clear. No pleural effusions or pneumothorax. Mediastinum: Mediastinal contours appear normal. Heart size is normal. Bones and chest wall: No suspicious bony lesions. Overlying soft tissues appear unremarkable. IMPRESSION: No acute cardiopulmonary abnormality is seen. Dictated by: Casa Toscano M.D. on 06/12/2025 at 13:13 Approved by: Casa Toscano M.D. on 06/12/2025 at 13:13
--- NOTE | 2025-06-12 12:08 | ED.SEIZURE ---
HPI - Seizure General Chief Complaint: Seizure Stated Complaint: seizure Time Seen by Provider: 06/12/25 11:57 Source: EMS Mode of arrival: EMS Limitations: altered mental status History of Present Illness HPI Narrative: 49 years old male with history of seizure disorder on lacosamide, Keppra brought in by ambulance today after 2 episodes of seizure. He is postictal and could not give much information. He was spontaneously breathing without acute distress and only as suggested no at this time. I got information that the patient was having 2 episode of seizure after stopped taking Keppra since his thought he just had to continue his new medication lacosamide only. He was vomiting in the ED. Later got information from the friends that he was having 2 seizure with full body ceasing last about for 5 minutes with postictal confusion. He was supposed to take Keppra along with his new medication zonisamide with the patient stopped Keppra on Thursday instead of Thursday night. Related Data Home Medications ?Medication ?Instructions ?Recorded ?Confirmed ibuprofen 200 mg tablet (Advil) 600 mg PO BID ##0 09/08/17 06/12/25 acetaminophen 500 mg tablet 1,000 mg PO BID 06/12/25 06/12/25 (Tylenol Extra Strength) Previous Rx's ?Medication ?Instructions ?Recorded lacosamide 50 mg tablet (Vimpat) 50 mg PO BID #90 tabs 06/13/25 zonisamide 100 mg capsule 200 mg (2 x 100 mg) PO DAILY #60 06/13/25 caps Allergies Allergy/AdvReac Type Severity Reaction Status Date / Time No Known Drug Allergies Allergy Verified 06/12/25 11:45 Review of Systems Review of Systems Narrative: Positive for seizure, nausea vomiting. Negative for chest pain, abdominal pain, shortness of breath. Patient History Medical History Healthy adult Social History household members: friend(s) Smoking Status: Current every day smoker alcohol intake: current tobacco type: cigarettes alcohol intake frequency: holidays/special occasions only Exam Narrative Exam Narrative: GENERAL: Mild distress due to vomiting. HEAD: Atraumatic. Normocephalic. EYES: Pupils equal round and reactive. Extraocular motions intact. No scleral icterus. No injection or drainage. NECK: Trachea midline. Non tender CARDIOVASCULAR: Regular rate and rhythm without murmurs, gallops, or rubs. RESPIRATORY: Clear to auscultation. Breath sounds equal bilaterally. No wheezes, rales, or rhonchi. GASTROINTESTINAL: Abdomen soft, non-tender, nondistended. EXTREMITIES: No edema or joint tenderness. BACK: Nontender without deformity or crepitance. No flank tenderness. NEURO: Awake. Moving all extremities. SKIN: No rash or erythema of visible areas Initial Vital Signs Initial Vital Signs: Vital Signs Temperature 98.3 F 06/12/25 11:45 Pulse Rate 59 L 06/12/25 11:45 Respiratory Rate 16 06/12/25 11:45 Blood Pressure 121/74 06/12/25 11:45 Pulse Oximetry 97 06/12/25 11:45 Oxygen Delivery Method Room Air 06/12/25 11:45 Course Orders Ordered: Discontinued Medications Acetaminophen (Acetaminophen 325 Mg Tablet) 650 mg PO Q6H PRN PRN Reason: Fever/Mild Pain (1-3) Last Admin: 06/13/25 02:30 Dose: 650 mg Documented By: ROC Droperidol (Droperidol 2.5 Mg/Ml Vial) 1.25 mg IV NOW ONE Stop: 06/12/25 12:11 Last Admin: 06/12/25 16:26 Dose: Not Given Documented By: ANIKET Levetiracetam 2,000 mg/ Sodium (Chloride) 120 mls @ 480 mls/hr IV NOW ONE Stop: 06/12/25 11:59 Last Infusion: 06/12/25 12:51 Dose: Infused Documented By: Admin: 06/12/25 12:21 Dose: 480 mls/hr Documented By: ANIKET Ketorolac Tromethamine (Ketorolac 30 Mg/Ml Vial) 15 mg IV NOW ONE Stop: 06/13/25 02:31 Last Admin: 06/13/25 06:45 Dose: Not Given Documented By: ROC Naloxone HCl (Naloxone 0.4 Mg/Ml Vial) 0.2 mg IV Q2MIN PRN PRN Reason: Opiate Reversal Ondansetron HCl (Ondansetron 4 Mg/2 Ml Inj) 4 mg IV NOW ONE Stop: 06/12/25 12:12 Last Admin: 06/12/25 12:34 Dose: 4 mg Documented By: ANIKET Ondansetron HCl (Ondansetron 4 Mg/2 Ml Inj) 4 mg IV Q8HR PRN PRN Reason: Nausea And Vomiting Oxycodone HCl (Oxycodone Ir 5 Mg Tablet) 5 mg PO Q3H PRN PRN Reason: Pain, Moderate (4-6) Zonisamide (Zonisamide 100 Mg Capsule) 200 mg PO BEDTIME LUCIUS Zonisamide (Zonisamide 100 Mg Capsule) 200 mg PO NOW ONE Stop: 06/13/25 08:29 Last Admin: 06/13/25 08:40 Dose: 200 mg Documented By: BRYAN Vital Signs Vital signs: Vital Signs - 8 hr 06/12/25 11:45 Temperature 98.3 F Pulse Rate 59 L Respiratory Rate 16 Blood Pressure 121/74 Pulse Oximetry 97 Oxygen Delivery Method Room Air MDM - Seizure Lab Data 06/13/25 05:30 06/13/25 05:30 Labs: Lab Results 06/12/25 06/12/25 Range/Units 11:44 14:28 WBC 13.4 H (4.5-11.0) X10^3/uL RBC 5.12 (4.5-5.9) X10^6/uL Hgb 15.9 (13.5-17.5) g/dL Hct 47.3 (41-53) % MCV 92.3 (80-100) fL MCH 30.9 (26-34) PG MCHC 33.5 (30-36) % RDW 13.0 (11.6-14.8) % Plt Count 271 (150-400) X10^3/uL Neut % (Auto) 82.4 H (50-75) % Lymph % (Auto) 11.8 L (25-40) % [place] % (Auto) 4.9 (3-14) % Eos % (Auto) 0.5 L (2-4) % Baso % (Auto) 0.4 (0-2) % Neut # (Auto) 95292 H (1227-6717) /uL Lymph # (Auto) 1600 (1998-4575) /uL [place] # (Auto) 700 (0-900) /uL Eos # (Auto) 100 (0-450) /uL Baso # (Auto) 0 (0-100) /uL Sodium 143 (137-145) mmol/L Potassium 3.5 (3.4-5.1) mmol/L Chloride 107 (98-107) mmol/L Carbon Dioxide 12 L (22-32) mmol/L BUN 13 (9-20) mg/dL Creatinine 1.02 (0.66-1.25) mg/dL Estimated GFR > 60 (>60) mL/min BUN/Creatinine Ratio 12.7 (6-22) Glucose 128 H (70-99) mg/dL Lactate 11.4 H* 0.8 (0.7-2.1) mmol/L Calcium 9.4 (8.4-10.2) mg/dL Total Bilirubin 0.4 (0.2-1.3) mg/dL AST 30 (17-59) IU/L ALT 25 (<50) IU/L Alkaline Phosphatase 79 (38-126) U/L Total Protein 8.1 (6.3-8.2) g/dL Albumin 4.9 (3.5-5.0) g/dL Globulin 3.2 (1.7-4.1) g/dL Albumin/Globulin Ratio 1.5 (1.0-2.8) Imaging Data CT scan - head: Radiologist's Impression: PROCEDURE: CT HEAD/BRAIN WO CON INDICATIONS: Seizure twice TECHNIQUE: Noncontrast 4.5 mm thick angled axial sections acquired from the foramen magnum to the vertex, with coronal and sagittal reformats. For radiation dose reduction, the following was used: automated exposure control, adjustment of mA and/or kV according to patient size. COMPARISON: [facility], CT, CT HEAD/BRAIN WO CON, 05/11/2025, 20:20. FINDINGS: Image quality: Diagnostic. CSF spaces: Basal cisterns are patent. No extra-axial fluid collections. Ventricles are normal in size and shape. Brain: No midline shift. No intracranial mass effect or hemorrhage. Farr-white matter interface is normal. Skull and face: Calvarium and visualized facial bones are intact, without suspicious lesions. Sinuses: Visualized sinuses and mastoids are clear. IMPRESSION: No acute intracranial pathology. Dictated by: Oscar Molina M.D. on 06/12/2025 at 13:23 Approved by: Oscar Molina M.D. on 06/12/2025 at 13:24 Chest x-ray: Radiologist's Impression: PROCEDURE: XR CHEST 1V INDICATIONS: Seizure TECHNIQUE: One view of the chest was acquired. COMPARISON: [facility], CR, XR CHEST 1V, 05/11/2025, 20:02. FINDINGS: Surgical changes and devices: None. Lungs and pleura: Lungs are clear. No pleural effusions or pneumothorax. Mediastinum: Mediastinal contours appear normal. Heart size is normal. Bones and chest wall: No suspicious bony lesions. Overlying soft tissues appear unremarkable. IMPRESSION: No acute cardiopulmonary abnormality is seen. Dictated by: Casa Toscano M.D. on 06/12/2025 at 13:13 Approved by: Casa Toscano M.D. on 06/12/2025 at 13:13 [facility] Narrative Medical decision making narrative: 49 years old male with history of seizure disorder on lacosamide, Keppra brought in by ambulance today after 2 episodes of seizure. He is postictal and could not give much information. He was spontaneously breathing without acute distress and only as suggested no at this time. I got information that the patient was having 2 episode of seizure after stopped taking Keppra since his thought he just had to continue his new medication lacosamide only. He was vomiting in the ED. Later got information from the friends that he was having 2 seizure with full body ceasing last about for 5 minutes with postictal confusion. He was supposed to take Keppra along with his new medication zonisamide with the patient stopped Keppra on Thursday instead of Thursday night. On exam showed no focal neurological deficit. Moves on both arms and legs. Follow commands, answering questions appropriately. His CV exam, lung exam, lung exam were normal. His CT brain showed no acute finding. CBC showed WBC 13.4 otherwise normal CBC. His CMP was normal. His lactate ST-T 11.4. He was given loading dose of Keppra 2 g in the ED. I discussed the case with his neurologist Dr. Grigsby suggest to have the patient continue zonisamide 200 mg nightly from tonight and from tomorrow morning start him on Vimpat 50 mg b.i.d. for 3 days then 100 mg b.i.d. for 3 days then 150 mg b.i.d. after that. He will be admitted for observation in the hospital. I discussed the case with our hospitalist and the patient was accepted to the hospital. Discharge Plan Departure Patient Disposition: Admitted as Observation Clinical Impression: Breakthrough seizure Admit Date/Time: 06/12/25 17:53 Admit Provider: Samy Madison
[2025-06-12 12:23] LABS: Add Manual Diff / Slide Review NO; Hematocrit 47.3 % (41-53); Hemoglobin 15.9 g/dL (13.5-17.5); Lymphocytes Absolute Auto 1600 /uL (1100-4500); Mean Corpuscular HGB Conc 33.5 % (30-36); Mean Corpuscular Hemoglobin 30.9 PG (26-34); Mean Corpuscular Volume 92.3 fL (80-100); Platelet Count 271 X10^3/uL (150-400)
[2025-06-12 12:28] LABS: Alanine Aminotransferase 25 IU/L (<50); Albumin 4.9 g/dL (3.5-5.0); Albumin Globulin Ratio 1.5 (1.0-2.8); Alkaline Phosphatase 79 U/L (38-126); Blood Urea Nitrogen 13 mg/dL (9-20); Calcium 9.4 mg/dL (8.4-10.2); Carbon Dioxide 12 mmol/L (22-32); Chloride 107 mmol/L (98-107); Estimated Glomerular Filt Rate > 60 mL/min (>60); Globulin 3.2 g/dL (1.7-4.1); Glucose 128 mg/dL (70-99); HEMOLYSIS < 15 (0-50); Potassium 3.5 mmol/L (3.4-5.1); Sodium 143 mmol/L (137-145); Total Protein 8.1 g/dL (6.3-8.2)
[2025-06-12 12:29] LABS: Lactate (Lactic Acid) 11.4 mmol/L (0.7-2.1)
[2025-06-12] MEDS: ONDANSETRON 4 MG/2 ML INJ IV (12:34)
[2025-06-12 13:56] LABS: Reflexed Lactate in 2 Hours Y
[2025-06-12 14:57] LABS: Lactate 2HR (Lactic Acid Rflx) 0.8 mmol/L (0.7-2.1)
--- NOTE | 2025-06-12 17:37 | CM.DANOTE ---
DCP Assessment Note: Pt is a 49yo male, resident of [place], is admitted for breakthrough seizures. Pt's Primary Care Provider is not established and insurance is [employer] . Reviewed chart and discussed with multidisciplinary team pt's medical status and initial discharge needs. Per ED Provider, pt to be admitted to Acute Care for continued observation and seizure medication management. DCP met w/patient at bedside; introduced self and role. Present in the room is pt's Aunt, Nubia. ph#[phone]. Patient was found in bed, alert and oriented, cooperative with assessment. Pt presents as guarded, consented for Aunt to speak on his behalf for most of assessment. Pt expressed preference in discharge home when cleared, family or friend will transport at discharge. Pt has a no hx of Acute Rehab in the past. Pt states seizures are new and just getting established with medications. Plan: Anticipating discharge home with family when medically cleared. CM team will follow closely for coordination of discharge plans. MARCY Wheat Discharge Planning/Care Management CM Discharge Assessment Start: 06/12/25 17:34 Freq: Status: Active Protocol: Document 06/12/25 17:34 MW (Rec: 06/12/25 17:37 MW [id number]) Discharge Planning Assessment Assigned Discharge LISA Isidro Policy Change Clerks Supervisor Provider None established Insurance [employer] DPOA/Assigned Aunt Delacruz Designee Name Contact Information [phone] Advance Directives? No History Provided By Patient,Family Member,Medical Record Has Patient been No admitted in last 30 days? Prior Living House Arrangements Comment [place] Type of Drives own vehicle transporation used prior to admit Independent with ADL Yes 's Is patient alert and Yes oriented? Discharge Plan Home Transportation Family or Friend Arrangement Review Status In Process Please Provide Date 06/12/25 Initial DC Assessment Was Performed Next Review Type Continued Stay Review
--- NOTE | 2025-06-12 18:08 | PM.HP.1 ---
History of Present Illness History of Present Illness Date Patient Seen: 06/12/25 Time Patient Seen: 18:08 Chief complaint: seizure Narrative: Patient is a 49-year-old male with a history of seizure disorder on chronic lacosamide, and Keppra. He was brought to ER after 2 episodes of seizure and was postictal. The patient had recently stopped his Keppra and was started on lacosamide. The patient was neurologist at [facility] was able to clarify recommendations for the plan. In fact, patient was supposed to overlap the Keppra and new lacosamide but stopped the Keppra prematurely. He Keppra IV load in the emergency department and instructions from his neurologist were to continue lacosamide at 200 mg HS and start Vimpat at 50 mg twice a day for 3 days, increase to 100 mg twice a day for 3 days and then increase to 150 twice a day for the indefinite future with close Urology follow up. Unfortunately, Vimpat is not on formulary here so this will have to start outpatient tomorrow. S: After transferring to the palacio, and when I spoke to him. He was not interested in any further seizure medications and seemed to understand that he would be having more seizures and that his clinical outcome would be unclear. He does still seem mentally somewhat fuzzy and I did reassure him that we will continue to talk about options but want to observe him overnight. [facility] Medical History Healthy adult Meds Home Medications and Allergies Home Medications ?Medication ?Instructions ?Recorded ?Confirmed ?Type ibuprofen 200 mg tablet (Advil) 200 mg PO PRN PRN ##0 09/08/17 10/16/23 History levetiracetam 500 mg tablet 500 mg PO BID #60 tabs 05/11/25 Rx (Keppra) acetaminophen 500 mg tablet 1,000 mg PO BID 06/12/25 06/12/25 History (Tylenol Extra Strength) zonisamide 100 mg capsule 100 mg PO BEDTIME 06/12/25 06/12/25 History Allergies Allergy/AdvReac Type Severity Reaction Status Date / Time No Known Drug Allergies Allergy Verified 06/12/25 11:45 Review of Systems Review of Systems Narrative: All else reviewed and otherwise unremarkable except as noted in the history and physical. Exam Vital Signs (past 8 hours): - 06/12/25 11:45 06/12/25 12:31 06/12/25 12:59 Temperature 98.3 F Pulse Rate 59 L 85 Respiratory Rate 16 23 Blood Pressure 121/74 107/57 L Pulse Oximetry 97 98 Oxygen Delivery Method Room Air 06/12/25 12:59 06/12/25 13:00 06/12/25 13:30 Temperature Pulse Rate 45 L 44 L 58 L Respiratory Rate 20 16 18 Blood Pressure Pulse Oximetry 91 97 Oxygen Delivery Method 06/12/25 14:00 06/12/25 14:12 06/12/25 14:12 Temperature Pulse Rate 56 L 55 L Respiratory Rate 16 Blood Pressure 97/59 L Pulse Oximetry 98 98 Oxygen Delivery Method 06/12/25 14:30 06/12/25 14:30 06/12/25 15:00 Temperature Pulse Rate 54 L Respiratory Rate 20 Blood Pressure 97/61 100/63 Pulse Oximetry 98 Oxygen Delivery Method 06/12/25 15:00 06/12/25 15:30 06/12/25 15:30 Temperature Pulse Rate 67 62 Respiratory Rate 16 19 Blood Pressure 103/55 L Pulse Oximetry 97 95 Oxygen Delivery Method 06/12/25 16:00 Temperature Pulse Rate 88 Respiratory Rate Blood Pressure Pulse Oximetry 99 Oxygen Delivery Method Room Air Oxygen Delivery Method Room Air Narrative Exam Narrative: NAD, alert and oriented, fluent speech, calm. Normocephalic skull, EOMI, anicteric sclera, symmetric pupils. Oropharynx unremarkable, no droop. Neck supple, midline trachea, no adenopathy. Lungs clear, normal rate and effort. Heart regular, no murmur gallop or rub. Abdomen is soft, non distended and non tender. Extremities are free of edema. Skin is free of rash or lesions. Joints are not swollen or deformed. Judgment appears to be normal. Objective Imaging CT scan - head: Radiologist's impression: No acute intracranial pathology. Chest x-ray: Radiologist's impression: No acute cardiopulmonary abnormality is seen. Labs 06/12/25 11:44 06/12/25 11:44 Labs: Laboratory Results - last 24 hr 06/12/25 06/12/25 11:44 14:28 WBC 13.4 H RBC 5.12 Hgb 15.9 Hct 47.3 MCV 92.3 MCH 30.9 MCHC 33.5 RDW 13.0 Plt Count 271 Neut % (Auto) 82.4 H Lymph % (Auto) 11.8 L [place] % (Auto) 4.9 Eos % (Auto) 0.5 L Baso % (Auto) 0.4 Neut # (Auto) 25934 H Lymph # (Auto) 1600 [place] # (Auto) 700 Eos # (Auto) 100 Baso # (Auto) 0 Sodium 143 Potassium 3.5 Chloride 107 Carbon Dioxide 12 L BUN 13 Creatinine 1.02 Estimated GFR > 60 BUN/Creatinine Ratio 12.7 Glucose 128 H Lactate 11.4 H* 0.8 Calcium 9.4 Total Bilirubin 0.4 AST 30 ALT 25 Alkaline Phosphatase 79 Total Protein 8.1 Albumin 4.9 Globulin 3.2 Albumin/Globulin Ratio 1.5 Assessment & Plan Assessment & Plan narrative: 1. Multiple seizures during a medication transition, improved. PLAN: -patient was given a Keppra IV load with instructions to not continue this further. -continue lacosamide 200 HS. -may give him an additional days worth of Keppra so that he can then transitioned to his outpatient Vimpat. We will confer with Neurology in the morning. -patient will be observed overnight for additional seizure activity, and an seizure precautions. Time-Based Coding :: 35 min spent with patient and on the chart (including review of chart, obtaining history, exam, reviewing outside data, placing orders, documenting exam and treatment plan, and counseling patient) on 06/12. Quality MIPS - Admit I confirm the patient?s Advance Care Plan is present, Code status is documented, Surrogate decision maker is in patient?s record [If Yes, STOP here]: Yes MIPS - Meds 'Current medications' to include all prescriptions, [id number] products, herbals, cannabis/cannabidiol products, and vitamin/mineral/dietary (nutritional) supplements. I have utilized all available resources to obtain, update, or review the patient?s current medications. [If Yes, STOP here]: Yes
[2025-06-13 02:00] VITALS: PULSE 62; RESP 18; TEMP 36.7; O2SAT 98
[2025-06-13] MEDS: ACETAMINOPHEN 325 MG TABLET 650 MG PO (02:30)
[2025-06-13 05:28] VITALS: BP 126/75; PULSE 70; RESP 17; TEMP 36.9; O2SAT 97
[2025-06-13 05:55] LABS: Add Manual Diff / Slide Review NO; Hematocrit 41.8 % (41-53); Hemoglobin 14.3 g/dL (13.5-17.5); Lymphocytes Absolute Auto 2300 /uL (1100-4500); Mean Corpuscular HGB Conc 34.1 % (30-36); Mean Corpuscular Hemoglobin 30.6 PG (26-34); Mean Corpuscular Volume 89.8 fL (80-100); Platelet Count 221 X10^3/uL (150-400)
[2025-06-13 06:09] LABS: Blood Urea Nitrogen 14 mg/dL (9-20); Calcium 9.0 mg/dL (8.4-10.2); Carbon Dioxide 19 mmol/L (22-32); Chloride 106 mmol/L (98-107); Estimated Glomerular Filt Rate > 60 mL/min (>60); Glucose 91 mg/dL (70-99); HEMOLYSIS < 15 (0-50); Potassium 3.2 mmol/L (3.4-5.1); Sodium 137 mmol/L (137-145)
--- NOTE | 2025-06-13 07:58 | PC.NURSE ---
Patient wants to go home, he states that he is hungry and would like to talk to the Doctor. Pleasant and did let this RN listen to his lungs and heart, which were wnl.
--- NOTE | 2025-06-13 08:29 | PM.DS.1 ---
History of Present Illness History of Present Illness Chief complaint: seizure Narrative: Patient is a 49-year-old male with a history of seizure disorder on chronic lacosamide, and Keppra. He was brought to ER after 2 episodes of seizure and was postictal. The patient had recently stopped his Keppra and was started on lacosamide. The patient was neurologist at [facility] was able to clarify recommendations for the plan. In fact, patient was supposed to overlap the Keppra and new lacosamide but stopped the Keppra prematurely. He Keppra IV load in the emergency department and instructions from his neurologist were to continue lacosamide at 200 mg HS and start Vimpat at 50 mg twice a day for 3 days, increase to 100 mg twice a day for 3 days and then increase to 150 twice a day for the indefinite future with close Urology follow up. Unfortunately, Vimpat is not on formulary here so this will have to start outpatient tomorrow. S: After transferring to the palacio, and when I spoke to him. He was not interested in any further seizure medications and seemed to understand that he would be having more seizures and that his clinical outcome would be unclear. He does still seem mentally somewhat fuzzy and I did reassure him that we will continue to talk about options but want to observe him overnight. Discharge Providers Provider Date of admission: 06/12/25 17:53 Discharge Date: 06/13/25 Consults: None. Discharge provider: Samy Madison MD Summary Hospital Course Discharge Diagnosis: 1. Multiple seizures during a medication transition, improved. Hospital Course: He was admitted after having multiple breakthrough seizures. He was given 2 g of Keppra in the ED. It was his wish not to be on Keppra any longer and he will be discharged on furosemide 200 mg HS and Vimpat on an escalating dose a 50 b.i.d. for 3 days, 100 b.i.d. for 3 days, 150 b.i.d. thereafter. These were instructions from his [facility] neurologist (Dr. Gomez). The patient does high-risk for noncompliance as he was not happy about his current situation or having to take medications. The perils of not taking seizure medication were discussed with the patient extensively prior to discharge. [N], the patient has documentation of a left ventricle ejection fracture less than or equal to 40%, or moderately or severely reduced left ventricle systolic function. [N], the patient has a history of heart transplant or left ventricular assist device (LVAD). [N], the patient was prescribed an LEAH inhibitor at discharge or is already being taken. The patient was not prescribed an LEAH-inhibitor because of the following exception: NA. [N], the patient was prescribed Metoprolol succinate, bisoprolol, or carvedilol at discharge. The patient was not prescribed Metoprolol succinate, bisoprolol, or carvedilol at discharge because of the following exception: NA. Status at Discharge Cognitive/behavioral status at discharge: oriented Functional status at discharge: independent ambulation Overall status at discharge: patient is back to baseline Time Spent with Patient Time spent: Greater than 30 minutes Exam Vital Signs (past 8 hours): - 06/13/25 02:00 06/13/25 05:28 Temperature 98.0 F 98.5 F Pulse Rate 62 70 Respiratory Rate 18 17 Blood Pressure 126/75 Pulse Oximetry 98 97 Oxygen Flow Rate 0 0 Oxygen Delivery Method Room Air Oxygen Flow Rate 0 Narrative Exam Narrative: NAD, alert and oriented. Fluent speech. Lungs are clear, normal rate and effort. Heart is regular, no murmur gallop or rub. Abdomen is soft, non distended. Extremities are free of edema. Objective Imaging Multiple studies: : Radiologist's impression: CT scan - head: Radiologist's impression: No acute intracranial pathology. Chest x-ray: Radiologist's impression: No acute cardiopulmonary abnormality is seen. Labs 06/13/25 05:30 06/13/25 05:30 Labs: Laboratory Results - last 24 hr 06/12/25 06/12/25 06/13/25 11:44 14:28 05:30 WBC 13.4 H 10.7 RBC 5.12 4.66 Hgb 15.9 14.3 Hct 47.3 41.8 MCV 92.3 89.8 MCH 30.9 30.6 MCHC 33.5 34.1 RDW 13.0 13.3 Plt Count 271 221 Neut % (Auto) 82.4 H 69.7 Lymph % (Auto) 11.8 L 21.5 L [place] % (Auto) 4.9 7.8 Eos % (Auto) 0.5 L 0.6 L Baso % (Auto) 0.4 0.4 Neut # (Auto) 92298 H 7400 H Lymph # (Auto) 1600 2300 [place] # (Auto) 700 800 Eos # (Auto) 100 100 Baso # (Auto) 0 0 Sodium 143 137 Potassium 3.5 3.2 L Chloride 107 106 Carbon Dioxide 12 L 19 L BUN 13 14 Creatinine 1.02 0.91 Estimated GFR > 60 > 60 BUN/Creatinine Ratio 12.7 15.4 Glucose 128 H 91 Lactate 11.4 H* 0.8 Calcium 9.4 9.0 Total Bilirubin 0.4 AST 30 ALT 25 Alkaline Phosphatase 79 Total Protein 8.1 Albumin 4.9 Globulin 3.2 Albumin/Globulin Ratio 1.5 PFSH Medical History Healthy adult Social History household members: friend(s) Smoking Status: Current every day smoker alcohol intake: current Discharge Assessment & Plan Assessment and Plan Assessment: 1. Multiple seizures during a medication transition, improved. Plan of Treatment: Plan is discharge on seizure meds as outlined above. Discharge Plan Discharge Plan Patient Disposition: Home Provider Discharge Comment: Stable for discharge. Discharge orders & Medications Prescriptions: New lacosamide [Vimpat] 50 mg tablet 50 mg PO BID Qty: 90 1RF Rx Instructions: 50 BID for 3 days, 100 mg BID for 3 days, then 150 mg BID thereafter. zonisamide 100 mg capsule 200 mg PO DAILY Qty: 60 2RF Continued ibuprofen [Advil] 200 MG tablet 600 mg PO BID Qty: 0 acetaminophen [Tylenol Extra Strength] 500 mg tablet 1,000 mg PO BID Discontinued levetiracetam [Keppra] 500 mg tablet 500 mg PO BID Qty: 60 0RF zonisamide 100 mg capsule 100 mg PO BEDTIME Medication counseling provided by Pharmacist: No Diet/Activity/Treatments Diet: Regular Visit Report/Discharge Packet Instructions: DI for Seizure Disorder -- Adult, Zonisamide Stand Alone Forms: Patient Portal/API Discharge Data Attending Provider: Samy Madison Admit Date/Time: 06/12/25 17:53 Quality VTE Deep Vein Thrombosis/Pulmonary Embolism Present on Admission: No
[2025-06-13] MEDS: ZONISAMIDE 100 MG CAPSULE 200 MG PO (08:40)
[2025-06-13 08:58] VITALS: BP 103/64; PULSE 63; RESP 21; TEMP 36.2; O2SAT 98
--- NOTE | 2025-06-13 10:05 | CM.DPNOTE ---
DCP Note [employer]VER[employer]ER TENDER reviewed EMR per provider cleared to dc home. D[employer] AND PULVER[employer]ER TENDER met with pt and family in room. provided PCP information. pt appreciative. declines other DCP/CM needs P: home today with pt to establish PCP f/u. no further CM needs. Valeria Yañez, LISA
== END 2025-06-13 09:14 | disposition home or self-care (01) ==
LOC: ED 16:43 → AC 17:54
PROVIDERS: Admitting Provider Hospitalist; Emergency Provider Emergency Medicine; Referring Provider Emergency Medicine; Visit Provider Hospitalist
DX: G40.909 Epilepsy, unspecified, not intractable, without status epilepticus (principal); F17.210 Nicotine dependence, cigarettes, uncomplicated
CPT/HCPCS: 36415; 70450; 71045; 80048; 80053; 83605; 85025; 96365; 96375; 99283; 99284; G0378; J1953; J2405; J7050

== ENCOUNTER 2025-06-17 08:57 | Emergency (ER) | payer OTHER, SELFPAY ==
[2025-06-17] VITALS (18 sets, daily range): BP systolic 115–183; BP diastolic 44–85; PULSE 48–75; RESP 17–51; TEMP 37.1; O2SAT 94–100; BMI 20.5
--- NOTE | 2025-06-17 09:31 | PC.NURSE ---
pt stated that he fell the other day on his left side. Has abrasion on his left flank with stabbing pain starting yesterday. normal for patient. 3 days no BM. Vomiting without diarrhea. Left ankle pain as well but able to partial wt bear.
--- NOTE | 2025-06-17 09:34 | EKG_ITS ---
[address] [address] [address] [address] Test Date: 2025-06-17 Pat Name: Rigoberto Abreu Department: Room: Gender: Male Development Expert: AKUA : 1975 Requested By: Order Number: [id number] Reading MD: Channing Moreland MD Measurements Intervals Richardson Rate: 54 P: 15 AK: 144 QRS: 33 QRSD: 98 T: 40 QT: 416 QTc: 394 Interpretive Statements Sinus bradycardia Electronically Signed On 06-18-2025 8:31:15 PST by Channing Moreland MD
--- NOTE | 2025-06-17 09:40 | ED_ITS ---
HPI - Neuro Symptoms/Deficit General Chief Complaint: Neuro Symptoms/Deficit Stated Complaint: Siezures/Vomiting/LT Side pain Time Seen by Provider: 06/17/25 09:30 Source: patient Mode of arrival: Wheelchair History of Present Illness HPI Narrative: This is a 49-year-old male here with left flank pain. He has a history of a seizure and had an episode of decreased responsiveness possibly a breakthrough seizure in the waiting room. History is provided by the patient and his aunt who brought him to the hospital. He began having sharp left-sided flank pain yesterday it is accompanied by vomiting. He does have a history of kidney stones before. He is not having any urinary symptoms at present. His bowels have been working okay. The patient was recently hospitalized with breakthrough seizures I reviewed the discharge summary from 13 June. Patient states that he has been taking his antiseizure medications since discharge. He is followed by Dr. Dyson at [facility] for Neurology On Anticoagulants: No Related Data Home Medications ?Medication ?Instructions ?Recorded ?Confirmed ibuprofen 200 mg tablet (Advil) 600 mg PO BID ##0 /0 01/1806/12/25 acetaminophen 500 mg tablet 1,000 mg PO BID 06/12/25 1 08/12/24 (Tylenol Extra Strength) Previous Rx's ?Medication ?Instructions ?Recorded lacosamide 50 mg tablet (Vimpat) 50 mg PO BID #90 tabs 06/13/25 zonisamide 100 mg capsule 200 mg (2 x 100 mg) PO DAILY #60 06/13/25 caps ondansetron 4 mg disintegrating 4 mg PO Q6H PRN nausea and 06/17/25 tablet vomiting #14 tabs oxycodone 5 mg tablet 5 mg PO Q6H PRN pain #14 tab s 06/17/25 tamsulosin 0.4 mg capsule 0.4 mg PO BEDTIME #20 caps 1 08/17/24 Allergies Allergy/AdvReac Type Severity Reaction Status Date / Time No Known Drug Allergies Allergy Verified 06/17/25 09:12 Review of Systems Hematologic/Lymphatic On Anticoagulants: No Patient History Medical History (Updated 06/17/25 @ 14:33 by Sukumar Goins MD) Healthy adult Social History household members: friend(s) Smoking Status: Former smoker alcohol intake: current Smoking Status: Former smoker tobacco type: cigarettes alcohol intake frequency: holidays/special occasions only Exam Narrative Exam Narrative: Alert oriented appears to be in no distress somewhat disheveled Normocephalic and atraumatic pupils are equal round and reactive extraocular movements are intact. Lungs are clear Heart sounds are normal Abdomen is soft normal bowel sounds he is tender on the left side without guarding or rebound there is no left CVAT. Neurologically alert oriented moving all 4 extremities spontaneously and equally. Initial Vital Signs Initial Vital Signs: Vital Signs Temperature 98.7 F 06/17/25 09:12 Pulse Rate 55 L 06/17/25 09:12 Respiratory Rate 18 06/17/25 09:12 Blood Pressure 183/44 H 06/17/25 09:12 Pulse Oximetry 98 06/17/25 09:12 Oxygen Delivery Method Room Air 06/17/25 09:12 Course Orders Ordered: ED Orders 06/17/25 10:10 Urine Culture Stat Urine Drug Screen, Rapid Stat Urine Microscopic Stat 06/17/25 11:22 Consult to General Surgery Stat 06/17/25 11:34 Lactate (Lactic Acid) Stat Discontinued Medications Acetaminophen (Acetaminophen 325 Mg Tablet) 650 mg PO NOW ONE Stop: 06/17/25 12:33 Last Admin: 06/17/25 13:00 Dose: Not Given Documented By: GATITO Hydromorphone HCl (Hydromorphone Hcl 0.5 Mg/0.5 Ml Syringe) 0.5 mg IV NOW ONE Stop: 06/17/25 09:40 Last Admin: 06/17/25 10:11 Dose: 0.5 mg Documented By: DANIEL Hydromorphone HCl (Hydromorphone 1 Mg/Ml Syringe) 1 mg IV NOW ONE Stop: 06/17/25 12:05 Last Admin: 06/17/25 12:12 Dose: 1 mg Documented By: GATITO Sodium Chloride (Normal Saline 0.9%) 1,000 mls @ 1,000 mls/hr IV BOLUS ONE Stop: 06/17/25 12:06 Last Infusion: 06/17/25 12:17 Dose: Infused Documented By: Admin: 06/17/25 11:37 Dose: 1,000 mls/hr Documented By: GATITO Ondansetron HCl (Ondansetron 4 Mg/2 Ml Inj) 4 mg IV NOW ONE Stop: 06/17/25 09:40 Last Admin: 06/17/25 10:12 Dose: 4 mg Documented By: DANIEL Ondansetron HCl (Ondansetron 4 Mg/2 Ml Inj) 4 mg IV NOW ONE Stop: 06/17/25 12:31 Last Admin: 06/17/25 13:00 Dose: 4 mg Documented By: GATITO Reevaluation(s) Reevaluation #1: At 11:20 a.m., patient is resting, still having abdominal pain, has some left- sided abdominal tenderness. Consultations Consultation #1: At 11:20 a.m., discussed with Dr. Arana general surgery, will counsult. Vital Signs Vital signs: Vital Signs - 8 hr 06/17/25 11:00 06/17/25 11:00 06/17/25 11:30 Pulse Rate 53 L 51 L Respiratory Rate 32 H 24 Blood Pressure 126/78 Pulse Oximetry 94 94 Oxygen Delivery Method 06/17/25 11:30 06/17/25 12:00 06/17/25 12:00 Pulse Rate 51 L Respiratory Rate 51 H Blood Pressure 130/77 140/80 Pulse Oximetry 98 Oxygen Delivery Method 06/17/25 12:30 06/17/25 12:30 06/17/25 13:00 Pulse Rate 51 L 75 Respiratory Rate 30 H 34 H Blood Pressure 142/76 H Pulse Oximetry 95 Oxygen Delivery Method 06/17/25 13:01 06/17/25 13:01 06/17/25 13:30 Pulse Rate 66 Respiratory Rate 35 H Blood Pressure 120/78 130/77 Pulse Oximetry 94 Oxygen Delivery Method 06/17/25 13:30 06/17/25 14:00 06/17/25 14:00 Pulse Rate 49 L 48 L Respiratory Rate 25 H 48 H Blood Pressure 115/65 Pulse Oximetry 97 98 Oxygen Delivery Method 06/17/25 14:30 06/17/25 14:31 06/17/25 14:31 Pulse Rate 57 L 54 L Respiratory Rate 37 H 35 H Blood Pressure 138/85 Pulse Oximetry 98 98 Oxygen Delivery Method 06/17/25 15:02 Pulse Rate Respiratory Rate Blood Pressure Pulse Oximetry Oxygen Delivery Method Room Air MDM - Neuro Symptoms/Deficit Lab Data Lab results narrative: Urine shows red cells, does not appear to be infected he has a mild leukocytosis which is nonspecific. Chemistries are reassuring. 06/17/25 09:15 06/17/25 09:15 Labs: Lab Results 06/17/25 06/17/25 06/17/25 Range/Units 09:15 10:10 11:34 WBC 15.3 H (4.5-11.0) X10^3/uL RBC 5.09 (4.5-5.9) X10^6/uL Hgb 15.5 (13.5-17.5) g/dL Hct 45.5 (41-53) % MCV 89.4 (80-100) fL MCH 30.4 (26-34) PG MCHC 34.0 (30-36) % RDW 13.3 (11.6-14.8) % Plt Count 280 (150-400) X10^3/uL Neut % (Auto) 85.8 H (50-75) % Lymph % (Auto) 7.4 L (25-40) % [place] % (Auto) 5.8 (3-14) % Eos % (Auto) 0.1 L (2-4) % Baso % (Auto) 0.9 (0-2) % Neut # (Auto) 24809 H (4098-3234) /uL Lymph # (Auto) 1100 (9127-1608) /uL [place] # (Auto) 900 (0-900) /uL Eos # (Auto) 0 (0-450) /uL Baso # (Auto) 100 (0-100) /uL Sodium 140 (137-145) mmol/L Potassium 4.0 (3.4-5.1) mmol/L Chloride 107 (98-107) mmol/L Carbon Dioxide 17 L (22-32) mmol/L BUN 21 H (9-20) mg/dL Creatinine 1.37 H (0.66-1.25) mg/dL Estimated GFR > 60 (>60) mL/min BUN/Creatinine Ratio 15.3 (6-22) Glucose 123 H (70-99) mg/dL Lactate 0.6 L (0.7-2.1) mmol/L Calcium 10.9 H (8.4-10.2) mg/dL Total Bilirubin 0.7 (0.2-1.3) mg/dL AST 29 (17-59) IU/L ALT 19 (<50) IU/L Alkaline Phosphatase 83 (38-126) U/L Total Protein 8.5 H (6.3-8.2) g/dL Albumin 5.1 H (3.5-5.0) g/dL Globulin 3.4 (1.7-4.1) g/dL Albumin/Globulin Ratio 1.5 (1.0-2.8) Lipase 82 (23-300) U/L Urine RBC 5-10/hpf H (0-5/HPF) Urine WBC 0-1/hpf (0-5/HPF) Ur Squamous Epith Cells 0-1 /hpf (0-5/HPF) Amorphous Sediment 1+ Urine Bacteria None seen (None) Vol Urine Centrifuged 10ml (spun) U Opiates 300ng/mL cut Negative (Negative) Ur Oxycodone Screen Negative (Negative) Urine Methadone Screen Negative (Negative) Ur Barbiturates Screen Negative (Negative) U Tricyclic Antidepress Negative (Negative) Ur Phencyclidine Scrn Negative (Negative) Ur Amphetamines Screen Negative (Negative) U Methamphetamines Scrn Negative (Negative) Ur MDMA Scrn (Ecstasy) Negative (Negative) U Benzodiazepines Scrn Negative (Negative) Urine Cocaine Screen Negative (Negative) U Marijuana (THC) Screen Positive H (Negative) Urine pH Normal (Normal) Urine Specific [place] Normal (Normal) Ur Creatinine Normal (Normal) Urine Dip Bedside Urine Glucose Negative Bedside Urine Bilirubin - Negative Bedside Urine Ketone + 15 Urine Specific [place] 1.015 Bedside Urine Occult Blood +++ Bedside Urine pH 6.0 Bedside Urine Protein +/- 15 Bedside Urine Urobilinogen - Negative Bedside Urine Nitrite - Negative Bedside Urine Leukocytes - Negative Esterase Imaging Data CT scan - abdomen/pelvis: My Impression: Independently reviewed CT abdomen and pelvis, stone in the distal left ureter with some left hydronephrosis. Radiologist's Impression: [address] [address] [address] Scan Report Signed Patient: Rigoberto Abreu MR#: [id number] : 1975 Acct:[id number] Age/Sex: 49 / M Date of Service: 06/17/25 Loc: ED Accession Number: [id number] Procedure: CT abdomen pelvis w con Ordering Provider: Sukumar Goins MD PROCEDURE: CT ABDOMEN PELVIS W CON INDICATIONS: l flank pain TECHNIQUE: After the administration of intravenous contrast, axial sections acquired from the lung bases to the pubic symphysis. Coronal and sagittal reformats were performed. For radiation dose reduction, the following was used: automated exposure control, adjustment of mA and/or kV according to patient size. COMPARISON: None. FINDINGS: Image quality: Diagnostic. Lower Chest: No significant findings. ABDOMEN: Liver: Several subcentimeter hypodensities too small to fully characterize by CT but are statistically favored to represent hepatic cyst. Gallbladder: No radiopaque gallstones or wall thickening. Biliary ducts: No biliary dilation. Pancreas: No ductal dilation. Spleen: Size is within normal limits. Adrenal Glands: No adrenal nodules. Kidneys and Ureters: Mild left-sided hydronephrosis with ill-defined stone at the distal ureteropelvic junction measuring 4 mm. additional nonobstructive 4 mm stone within the left lower pole. 2 mm stone within the interpolar region. Punctate right interpolar stone. Stomach and Bowel: Normal colonic caliber, without significant wall thickening. Central pelvic intussusception seen on coronal image 58 measuring approximately 8 cm in length containing mesenteric fat and bowel. Peritoneum: No abnormal intraperitoneal fluid. No free air. Ventral Wall: No significant ventral hernia. Abdominal Nodes: No retroperitoneal or mesenteric adenopathy by size criteria. Vessels: Aorta and inferior vena cava are normal in size. PELVIS: Pelvic Organs: Unremarkable. Bladder: No bladder wall thickening, accounting for underdistention. Pelvic Nodes: No enlarged lymph nodes. Miscellaneous: No inguinal hernias are seen. Bones: No aggressive osseous abnormality. IMPRESSION: 1. Distal left ureteral stone with mild left hydronephrosis. 2. Additional nonobstructive renal stones. 3. Likely transient pelvic solid small bowel intussusception Dictated by: Angelo Arreola M.D. on 06/17/2025 at 9:58 Approved by: Angelo Arreola M.D. on 06/17/2025 at 10:10 [place] [address] CT Scan Report Signed Patient: Rigoberto Abreu MR#: [id number] : 1975 Acct:[id number] Age/Sex: 49 / M Date of Service: 06/17/25 Loc: ED Accession Number: [id number] Procedure: CT abdomen pelvis w con Ordering Provider: Sukumar Goins MD PROCEDURE: CT ABDOMEN PELVIS W CON INDICATIONS: l flank pain TECHNIQUE: After the administration of intravenous contrast, axial sections acquired from the lung bases to the pubic symphysis. Coronal and sagittal reformats were performed. For radiation dose reduction, the following was used: automated exposure control, adjustment of mA and/or kV according to patient size. COMPARISON: None. FINDINGS: Image quality: Diagnostic. Lower Chest: No significant findings. ABDOMEN: Liver: Several subcentimeter hypodensities too small to fully characterize by CT but are statistically favored to represent hepatic cyst. Gallbladder: No radiopaque gallstones or wall thickening. Biliary ducts: No biliary dilation. Pancreas: No ductal dilation. Spleen: Size is within normal limits. Adrenal Glands: No adrenal nodules. Kidneys and Ureters: Mild left-sided hydronephrosis with ill-defined stone at the distal ureteropelvic junction measuring 4 mm. additional nonobstructive 4 mm stone within the left lower pole. 2 mm stone within the interpolar region. Punctate right interpolar stone. Stomach and Bowel: Normal colonic caliber, without significant wall thickening. Central pelvic intussusception seen on coronal image 58 measuring approximately 8 cm in length containing mesenteric fat and bowel. Peritoneum: No abnormal intraperitoneal fluid. No free air. Ventral Wall: No significant ventral hernia. Abdominal Nodes: No retroperitoneal or mesenteric adenopathy by size criteria. Vessels: Aorta and inferior vena cava are normal in size. PELVIS: Pelvic Organs: Unremarkable. Bladder: No bladder wall thickening, accounting for underdistention. Pelvic Nodes: No enlarged lymph nodes. Miscellaneous: No inguinal hernias are seen. Bones: No aggressive osseous abnormality. IMPRESSION: 1. Distal left ureteral stone with mild left hydronephrosis. 2. Additional nonobstructive renal stones. 3. Likely transient pelvic solid small bowel intussusception Dictated by: Angelo Arreola M.D. on 06/17/2025 at 9:58 Approved by: Angelo Arreola M.D. on 06/17/2025 at 10:10 MDM Narrative Medical decision making narrative: 49-year-old male with a history of a seizure disorder who came to see us because of left flank pain. While in the waiting room we had a brief episode of decreased responsiveness no seizure activity was witnessed he was fully responsive throughout the remainder of his emergency department stay he was at his baseline mental status this was not further evaluated. With regard to his flank pain he was noted to have a ureteral stone, there was no evidence of obstruction. CT suggested a possible intussusception he was not vomiting he does not have evidence of a bowel obstruction and surgery was consulted and saw the patient and felt that he could go home without specific treatment for the possible intussusception. I discharged him on oxycodone ibuprofen acetaminophen and tamsulosin he also had a prescription for ondansetron. He is to follow up with the Urology and indications for return to emergency department were reviewed Discharge Plan Departure Patient Disposition: Home Clinical Impression: Acute flank pain, Left ureteral calculus, Intussusception intestine Prescriptions: New ondansetron 4 mg tablet,disintegrating 4 mg PO Q6H PRN (Reason: nausea and vomiting) Qty: 14 0RF tamsulosin 0.4 mg capsule 0.4 mg PO BEDTIME Qty: 20 0RF oxycodone 5 mg tablet 5 mg PO Q6H PRN (Reason: pain) Qty: 14 0RF No Action ibuprofen [Advil] 200 MG tablet 600 mg PO BID Qty: 0 acetaminophen [Tylenol Extra Strength] 500 mg tablet 1,000 mg PO BID lacosamide [Vimpat] 50 mg tablet 50 mg PO BID Qty: 90 1RF Rx Instructions: 50 BID for 3 days, 100 mg BID for 3 days, then 150 mg BID thereafter. zonisamide 100 mg capsule 200 mg PO DAILY Qty: 60 2RF Referrals: Emanuel Jin DO [Physician, Urology] Referral Note: ureteral stone Stand Alone Forms: Patient Portal/API
[2025-06-17 09:44] LABS: Add Manual Diff / Slide Review NO; Hematocrit 45.5 % (41-53); Hemoglobin 15.5 g/dL (13.5-17.5); Lymphocytes Absolute Auto 1100 /uL (1100-4500); Mean Corpuscular HGB Conc 34.0 % (30-36); Mean Corpuscular Hemoglobin 30.4 PG (26-34); Mean Corpuscular Volume 89.4 fL (80-100); Platelet Count 280 X10^3/uL (150-400)
[2025-06-17 09:52] LABS: Alanine Aminotransferase 19 IU/L (<50); Albumin 5.1 g/dL (3.5-5.0); Albumin Globulin Ratio 1.5 (1.0-2.8); Alkaline Phosphatase 83 U/L (38-126); Blood Urea Nitrogen 21 mg/dL (9-20); Calcium 10.9 mg/dL (8.4-10.2); Carbon Dioxide 17 mmol/L (22-32); Chloride 107 mmol/L (98-107); Estimated Glomerular Filt Rate > 60 mL/min (>60); Globulin 3.4 g/dL (1.7-4.1); Glucose 123 mg/dL (70-99); HEMOLYSIS 27 (0-50); Lipase 82 U/L (23-300); Potassium 4.0 mmol/L (3.4-5.1); Sodium 140 mmol/L (137-145); Total Protein 8.5 g/dL (6.3-8.2)
[2025-06-17] MEDS: ONDANSETRON 4 MG/2 ML INJ IV ×2 (10:12→13:00)
--- NOTE | 2025-06-17 10:21 | PC.NURSE ---
patient came in for abd pain in his left lower quadrant and thought might have another seizure. Passed out in lobby momentarily. Was slightly delayed in response but speech was clear and coherent. Patient A&O x 4. Pain control stated goal is to be knocked out and let sleep Pt's pain management goals addressed and informed that we would treat his pain according to safe and best practice.
[2025-06-17 10:51] LABS: UR Morphine/Opiate cutoff 300 Negative (Negative); Ur Specific Gravity Normal (Normal); Urine MDMA Negative (Negative); Urine Methamphetamines Negative (Negative); Urine Tetrahydrocannabinol Positive (Negative); Urine Tricyclic Antidepressant Negative (Negative)
[2025-06-17] MEDS: SODIUM CHLORIDE 0.9% 1,000 ML 1000 ML IV (11:37)
--- NOTE | 2025-06-17 11:38 | PC.NURSE ---
Dr. cee at bedside for assessment and discussion with patient
--- NOTE | 2025-06-17 11:40 | P.CONS_ITS ---
History of Present Illness Consult details Date Patient Seen: 06/17/25 Chief complaint: Siezures/Vomiting/LT Side pain Reason for consult: Intussusception Requesting provider: Sukumar Goins Narrative: Surgery consult requested for small bowel intussusception noted on CT scan. Patient with history of seizures and renal lithiasis. Presented to ED with left flank pain. CT imaging demonstrates distal left ureteral stone with mild left hydronephrosis. Incidental finding of transient distal small bowel intussusception. UA with 5-10 rbc/hpf. Prior to this kidney stone, patient tolerating regular diet and having daily BMs without n/v. Meds Home Medications and Allergies Home Medications ?Medication ?Instructions ?Recorded ?Confirmed ?Type ibuprofen 200 mg tablet (Advil) 600 mg PO BID ##0 /0 01/1806/12/25 History acetaminophen 500 mg tablet 1,000 mg PO BID 06/12/25 1 08/12/24 History (Tylenol Extra Strength) lacosamide 50 mg tablet (Vimpat) 50 mg PO BID #90 tabs 06/13/25 Rx zonisamide 100 mg capsule 200 mg (2 x 100 mg) PO DAILY #60 06/13/25 Rx caps Allergies Allergy/AdvReac Type Severity Reaction Status Date / Time No Known Drug Allergies Allergy Verified 06/17/25 09:12 Exam Vital Signs (past 8 hours): - 06/17/25 09:12 06/17/25 09:14 06/17/25 09:15 Temperature 98.7 F Pulse Rate 55 L 54 L Respiratory Rate 18 29 H Blood Pressure 183/44 H 144/83 H Pulse Oximetry 98 99 Oxygen Delivery Method Room Air 06/17/25 09:15 06/17/25 09:30 06/17/25 09:31 Temperature Pulse Rate 57 L 67 Respiratory Rate Blood Pressure 149/75 H Pulse Oximetry 99 98 Oxygen Delivery Method 06/17/25 09:31 06/17/25 10:04 06/17/25 10:16 Temperature Pulse Rate 67 60 54 L Respiratory Rate 26 H 23 17 Blood Pressure Pulse Oximetry 98 99 100 Oxygen Delivery Method 06/17/25 10:16 06/17/25 10:30 06/17/25 10:30 Temperature Pulse Rate 52 L Respiratory Rate Blood Pressure 141/77 H 134/77 Pulse Oximetry 95 Oxygen Delivery Method 06/17/25 11:00 06/17/25 11:00 06/17/25 11:30 Temperature Pulse Rate 53 L 51 L Respiratory Rate 32 H 24 Blood Pressure 126/78 Pulse Oximetry 94 94 Oxygen Delivery Method 06/17/25 11:30 Temperature Pulse Rate Respiratory Rate Blood Pressure 130/77 Pulse Oximetry Oxygen Delivery Method Oxygen Delivery Method Room Air Narrative Exam Narrative: Const General: healthy appearing Orientation: alert and oriented x3 Resp Effort & Inspection: normal respiratory effort and able to speak in complete sentences Cardio Rate: regular rate GI Palpation: soft, non-peritoneal exam Extrem General: no pedal edema and no calf tenderness Objective Labs 06/17/25 09:15 06/17/25 09:15 Labs: Laboratory Results - last 24 hr 06/17/25 06/17/25 09:15 10:10 WBC 15.3 H RBC 5.09 Hgb 15.5 Hct 45.5 MCV 89.4 MCH 30.4 MCHC 34.0 RDW 13.3 Plt Count 280 Neut % (Auto) 85.8 H Lymph % (Auto) 7.4 L [place] % (Auto) 5.8 Eos % (Auto) 0.1 L Baso % (Auto) 0.9 Neut # (Auto) 84635 H Lymph # (Auto) 1100 [place] # (Auto) 900 Eos # (Auto) 0 Baso # (Auto) 100 Sodium 140 Potassium 4.0 Chloride 107 Carbon Dioxide 17 L BUN 21 H Creatinine 1.37 H Estimated GFR > 60 BUN/Creatinine Ratio 15.3 Glucose 123 H Calcium 10.9 H Total Bilirubin 0.7 AST 29 ALT 19 Alkaline Phosphatase 83 Total Protein 8.5 H Albumin 5.1 H Globulin 3.4 Albumin/Globulin Ratio 1.5 Lipase 82 Urine RBC 5-10/hpf H Urine WBC 0-1/hpf Ur Squamous Epith Cells 0-1 /hpf Amorphous Sediment 1+ Urine Bacteria None seen Vol Urine Centrifuged 10ml (spun) U Opiates 300ng/mL cut Negative Ur Oxycodone Screen Negative Urine Methadone Screen Negative Ur Barbiturates Screen Negative U Tricyclic Antidepress Negative Ur Phencyclidine Scrn Negative Ur Amphetamines Screen Negative U Methamphetamines Scrn Negative Ur MDMA Scrn (Ecstasy) Negative U Benzodiazepines Scrn Negative Urine Cocaine Screen Negative U Marijuana (THC) Screen Positive H Urine pH Normal Urine Specific [place] Normal Ur Creatinine Normal [facility] History (Updated 06/17/25 @ 11:47 by Axel Arana MD) Healthy adult Social History household members: friend(s) Tobacco & Substance Use Smoking Status: Former smoker alcohol intake: current Assessment & Plan Assessment and plan (1) Renal lithiasis: Status: Acute (2) Intussusception of small bowel: Status: Acute Plan Distal small bowel intussusception likely transient. His symptoms correlate with obstructing left renal lithiasis. Patient tolerated regular diet yesterday with normal BM. I discussed with patient if he develops obstructive GI symptoms such as abdominal cramps and vomiting, we should further investigate with imaging such as small bowel follow through. It is likely the CT timing captured this transient finding. There is no mass on CT that would serve as a lead point. He may follow-up in general surgery clinic or return to ED with obstructive GI symptoms. Unless there is a small bowel mass serving as a lead point, most of these incidental CT findings of intussusception are transient events that require no surgical intervention. Time-Based Coding :: [TOTAL MINUTES] spent with patient and on the chart (including review of chart, obtaining history, exam, reviewing outside data, placing orders, documenting exam and treatment plan, and counseling patient) on [DATE]. PROFEE Charge Codes Inpatient or Observation consultation: [id number]
[2025-06-17 11:52] LABS: Lactate (Lactic Acid) 0.6 mmol/L (0.7-2.1)
--- NOTE | 2025-06-17 12:10 | PC.NURSE ---
pt vomiting in room. Reports it is from the pain. Provider aware. See MAR for orders
== END 2025-06-17 15:03 | disposition home or self-care (01) ==
PROVIDERS: Emergency Provider Emergency Medicine
DX: N20.1 Calculus of ureter (principal); R10.A2 Flank pain, left side; K56.1 Intussusception
CPT/HCPCS: 36415; 74177; 80053; 80305; 81003; 81015; 83605; 83690; 85025; 87086; 93005; 96361; 96374; 96375; 96376; 99284; J1171; J2405; J7030; Q9967